=== PATIENT | male | born 1985 | race Caucasian/White ===

== ENCOUNTER 2017-08-03 17:01 | Emergency (ER) | payer MEDICAID ==
[~2017-08-03] VITALS: Ht 5703.2 cm; Wt 150.0 kg
[~2017-08-03 17:01] MED LIST: DIVA500T2 PO; HAL5T PO; HALO10TA13 PO; VALP250C44 PO
[2017-08-03] MEDS ORDERED: ziprasidone IM 20mg inj **IM only IM STA (17:45)
[2017-08-03 19:03] LABS: BASOPHILS # (AUTO) 0.1 X10'3 (0-0.2); BASOPHILS % (AUTO) 0.6 % (0-1); EOSINOPHILS # (AUTO) 0.1 X10'3 (0-0.9); EOSINOPHILS % (AUTO) 1.2 % (0-6); HEMATOCRIT 39.6 % (42.0-52.0); HEMOGLOBIN 13.6 g/dl (14.0-17.9); LYMPHOCYTES # (AUTO) 2.2 X10'3 (1.1-4.8); LYMPHOCYTES % (AUTO) 18.4 % (21-51); MEAN CORPUSCULAR HEMOGLOBIN 29.5 PG (27.0-31.0); MEAN CORPUSCULAR HGB CONC 34.4 % (33.0-36.5); MEAN CORPUSCULAR VOLUME 85.8 FL (78-98); MEAN PLATELET VOLUME 12.1 FL (7.4-10.4); MONOCYTES # (AUTO) 1.2 X10'3 (0-0.9); MONOCYTES % (AUTO) 10.2 % (2-12); NEUTROPHILS # (AUTO) 8.5 X10'3 (1.8-7.7); NEUTROPHILS % (AUTO) 69.6 % (42-75); PLATELET COUNT 223 X10'3 (140-440); RED BLOOD COUNT 4.61 X10'6 (4.70-6.10); RED CELL DISTRIBUTION WIDTH 14.3 % (11.5-14.5); WHITE BLOOD COUNT 12.1 X10'3 (4.5-11.0)
[2017-08-03 19:35] LABS: ALANINE AMINOTRANSFERASE 94 U/L (12-78); ALBUMIN 3.6 G/DL (3.4-5.0); ALBUMIN/GLOBULIN RATIO 0.9 (1.1-1.5); ALKALINE PHOSPHATASE 89 IU/L (46-116); ANION GAP 12 (8-16); ASPARTATE AMINO TRANSFERASE 48 U/L (10-37); BILIRUBIN,TOTAL 0.6 MG/DL (0.1-1.0); BLOOD UREA NITROGEN 13 MG/DL (7-18); BUN/CREATININE RATIO 19.4 (5.4-32.0); CHLORIDE 104 MMOL/L (99-107); CREATININE 0.67 MG/DL (0.60-1.10); ETHANOL < 0.010 GM/DL (0.0-0.010); GLUCOSE 98 MG/DL (70-104); POTASSIUM 3.1 MMOL/L (3.5-5.1); SODIUM 140 MMOL/L (135-145); TOTAL CARBON DIOXIDE 23.7 MMOL/L (24-32); TOTAL PROTEIN 7.5 G/DL (6.4-8.2); eGFR > 90 ML/MIN
[2017-08-03 19:37] LABS: ACETAMINOPHEN < 2.0 UG/ML (10-30); VALPROATE < 3.0 UG/ML (50-100)
[2017-08-03] MEDS ORDERED: HYDR-569 PO (19:52)
[2017-08-03] MEDS ORDERED: potassium Cl 20 mEq SR tablet PO ONE (19:55)
[2017-08-03 20:30] LABS: LARGE PLATELETS MODERATE; PLATELET ESTIMATE NORMAL
[2017-08-03 21:16] LABS: CLARITY,URINE CLEAR (Clear); COLOR,URINE YELLOW (Yellow); GLUCOSE, URINE NEGATIVE (Neg); KETONES,URINE NEGATIVE (Neg); LEUKOCYTE ESTERASE ,URINE NEGATIVE (Neg); NITRITES, URINE NEGATIVE (Neg); OCCULT BLOOD,URINE NEGATIVE (Neg); PROTEIN,URINE NEGATIVE (Neg)
[2017-08-03 21:21] LABS: UA COLLECTION TYPE CLN CATCH MIDSTREAM
[2017-08-03] MEDS ORDERED: NO HOME MEDS (21:26)
[2017-08-03 21:27] LABS: URINE AMPHETAMINE SCREEN NEGATIVE (Neg); URINE BARBITUATE SCREEN NEGATIVE (Neg); URINE BENZODIAZEPINES SCREEN NEGATIVE (Neg); URINE CANNABINOID SCREEN POSITIVE (Neg); URINE COCAINE SCREEN NEGATIVE (Neg); URINE METHADONE SCREEN NEGATIVE (Neg); URINE OPIATE SCREEN NEGATIVE (Neg); URINE PHENCYCLIDINE SCREEN NEGATIVE (Neg)
[2017-08-04] MEDS ORDERED: BENZ1TAB7 PO (12:51)
[2017-08-04] MEDS ORDERED: HALO5TAB PO (12:51)
[2017-08-04] MEDS ORDERED: LORA1TAB PO (12:51)
[2017-08-04] MEDS ORDERED: haloperidol lactate 5mg/ml inj IM ONE (13:25)
[2017-08-04] MEDS: benztropine 1mg tablet PO SCH (20:28)
[2017-08-04] MEDS: haloperidol 5mg tablet PO SCH (20:28)
[2017-08-04] MEDS: LORazepam 1 MG tablet PO SCH (20:28)
[2017-08-05 05:51] VITALS: BP 134/56
[2017-08-05] MEDS: haloperidol 5mg tablet PO SCH (12:35)
[2017-08-05] MEDS: LORazepam 1 MG tablet PO SCH ×2 (12:35→13:00)
[2017-08-05] MEDS: benztropine 1mg tablet PO SCH (12:35)
== END 2017-08-05 14:42 ==
LOC: ER 17:01
DX: F20.9 Schizophrenia, unspecified (principal); F29 Unspecified psychosis not due to a substance or known physiological condition; F79 Unspecified intellectual disabilities; E87.6 Hypokalemia; J45.909 Unspecified asthma, uncomplicated; F17.200 Nicotine dependence, unspecified, uncomplicated; Z59.0 Homelessness; Z60.2 Problems related to living alone; Z88.0 Allergy status to penicillin; Z79.899 Other long term (current) drug therapy
CPT/HCPCS: 36415; 80053; 80164; 80178; 80305; 80320; 80329; 81003; 84443; 85025; 96372; 99285; J1630; J3486

== ENCOUNTER 2017-08-20 15:00 | Emergency (ER) | payer MEDICAID ==
[~2017-08-20] VITALS: Ht 172.7 cm; Wt 119.3 kg
[~2017-08-20 15:00] MED LIST changes: +BENZ1TAB7 PO; -DIVA500T2 PO; -HAL5T PO; -HALO10TA13 PO; +HALO5TAB PO; +LORA1TAB PO; -VALP250C44 PO
[2017-08-20 16:40] LABS: BASOPHILS # (AUTO) 0.1 X10'3 (0-0.2); BASOPHILS % (AUTO) 0.4 % (0-1); EOSINOPHILS % (AUTO) 6.2 % (0-6); HEMATOCRIT 39.4 % (42.0-52.0); HEMOGLOBIN 13.9 g/dl (14.0-17.9); LYMPHOCYTES # (AUTO) 2.6 X10'3 (1.1-4.8); LYMPHOCYTES % (AUTO) 16.9 % (21-51); MEAN CORPUSCULAR HEMOGLOBIN 29.8 PG (27.0-31.0); MEAN CORPUSCULAR HGB CONC 35.2 % (33.0-36.5); MEAN CORPUSCULAR VOLUME 84.5 FL (78-98); MEAN PLATELET VOLUME 9.9 FL (7.4-10.4); MONOCYTES # (AUTO) 1.4 X10'3 (0-0.9); MONOCYTES % (AUTO) 9.3 % (2-12); NEUTROPHILS # (AUTO) 10.4 X10'3 (1.8-7.7); NEUTROPHILS % (AUTO) 67.2 % (42-75); PLATELET COUNT 268 X10'3 (140-440); RED BLOOD COUNT 4.66 X10'6 (4.70-6.10); RED CELL DISTRIBUTION WIDTH 14.1 % (11.5-14.5); WHITE BLOOD COUNT 15.4 X10'3 (4.5-11.0)
[2017-08-20 16:42] LABS: CLARITY,URINE CLEAR (Clear); COLOR,URINE STRAW (Yellow); GLUCOSE, URINE NEGATIVE (Neg); KETONES,URINE NEGATIVE (Neg); LEUKOCYTE ESTERASE ,URINE TRACE (Neg); NITRITES, URINE NEGATIVE (Neg); OCCULT BLOOD,URINE NEGATIVE (Neg); PROTEIN,URINE NEGATIVE (Neg); UROBILINOGEN,URINE 0.2 E.U/dL (0.2-1.0)
[2017-08-20 16:44] LABS: UA COLLECTION TYPE VOIDED
[2017-08-20 16:48] LABS: BACTERIA,URINE NONE SEEN /HPF (Neg); RBC,URINE NONE SEEN /HPF (0-2); SQUAMOUS EPITHELIAL CELL,UR FEW /LPF (FEW); WBC,URINE 0-4 /HPF (0-4)
[2017-08-20 16:56] LABS: URINE AMPHETAMINE SCREEN NEGATIVE (Neg); URINE BARBITUATE SCREEN NEGATIVE (Neg); URINE BENZODIAZEPINES SCREEN NEGATIVE (Neg); URINE CANNABINOID SCREEN POSITIVE (Neg); URINE COCAINE SCREEN NEGATIVE (Neg); URINE METHADONE SCREEN NEGATIVE (Neg); URINE OPIATE SCREEN NEGATIVE (Neg); URINE PHENCYCLIDINE SCREEN NEGATIVE (Neg)
[2017-08-20 17:04] LABS: ALANINE AMINOTRANSFERASE 41 U/L (12-78); ALBUMIN 3.4 G/DL (3.4-5.0); ALBUMIN/GLOBULIN RATIO 0.9 (1.1-1.5); ALKALINE PHOSPHATASE 74 IU/L (46-116); ANION GAP 8 (8-16); ASPARTATE AMINO TRANSFERASE 23 U/L (10-37); BILIRUBIN,TOTAL 0.3 MG/DL (0.1-1.0); BLOOD UREA NITROGEN 8 MG/DL (7-18); BUN/CREATININE RATIO 10.3 (5.4-32.0); CALCIUM 8.7 MG/DL (8.5-10.1); CHLORIDE 104 MMOL/L (99-107); CREATININE 0.78 MG/DL (0.60-1.10); ETHANOL < 0.010 GM/DL (0.0-0.010); GLUCOSE 92 MG/DL (70-104); POTASSIUM 3.7 MMOL/L (3.5-5.1); SODIUM 141 MMOL/L (135-145); TOTAL CARBON DIOXIDE 28.9 MMOL/L (24-32); TOTAL PROTEIN 7.1 G/DL (6.4-8.2); eGFR > 90 ML/MIN
[2017-08-20] MEDS ORDERED: ziprasidone IM 20mg inj **IM only IM ONE (18:00)
[2017-08-20] MEDS ORDERED: haloperidol 5mg tablet PO SCH (20:00)
[2017-08-20] MEDS ORDERED: LORazepam 1 MG tablet PO SCH (21:00)
[2017-08-20] MEDS: benztropine 1mg tablet PO SCH (21:27)
[2017-08-21 05:34] VITALS: BP 115/66
[2017-08-21] MEDS ORDERED: haloperidol 5mg tablet PO SCH (08:00)
[2017-08-21] MEDS: benztropine 1mg tablet PO SCH (08:33)
== END 2017-08-21 09:26 ==
LOC: ER 15:01
DX: F79 Unspecified intellectual disabilities (principal); F31.9 Bipolar disorder, unspecified; F20.9 Schizophrenia, unspecified; J45.909 Unspecified asthma, uncomplicated; Z88.0 Allergy status to penicillin; Z59.0 Homelessness
CPT/HCPCS: 36415; 71046; 80053; 80305; 80320; 81001; 84443; 85025; 96372; 99285; J3486

== ENCOUNTER 2017-10-29 10:31 | Emergency (ER) | payer MEDICAID ==
[~2017-10-29] VITALS: Ht 180.3 cm; Wt 127.3 kg
[2017-10-29 10:39] VITALS: BP 158/83
[2017-10-29] MEDS ORDERED: acetaminophen 325mg tablet PO ONE (11:10)
[2017-10-29] MEDS ORDERED: dexamethasone sod phosphate 10mg/ml inj IM STA (11:10)
[2017-10-29] MEDS ORDERED: CEPH-571 PO (11:11)
[2017-10-29] MEDS ORDERED: LIDO20SO16 PO (11:11)
[2017-10-29] MEDS ORDERED: IBUP-1986 PO (11:11)
== END 2017-10-29 11:49 | disposition home or self-care (01) ==
LOC: ER 10:31
DX: J02.0 Streptococcal pharyngitis (principal); J45.909 Unspecified asthma, uncomplicated; F31.9 Bipolar disorder, unspecified; Z60.2 Problems related to living alone; Z59.0 Homelessness; Z88.0 Allergy status to penicillin; Z79.2 Long term (current) use of antibiotics; Z79.899 Other long term (current) drug therapy
CPT/HCPCS: 87880; 96372; 99283; J1100

== ENCOUNTER 2018-01-16 13:45 | Emergency (ER) | payer MEDICAID ==
[~2018-01-16] VITALS: Ht 172.7 cm; Wt 127.3 kg
[~2018-01-16 13:45] MED LIST changes: +CEPH-571 PO; +IBUP-1986 PO; +LIDO20SO16 PO
[2018-01-16 14:21] LABS: URINE AMPHETAMINE SCREEN POSITIVE (Neg); URINE BARBITUATE SCREEN NEGATIVE (Neg); URINE BENZODIAZEPINES SCREEN NEGATIVE (Neg); URINE CANNABINOID SCREEN POSITIVE (Neg); URINE COCAINE SCREEN NEGATIVE (Neg); URINE METHADONE SCREEN NEGATIVE (Neg); URINE OPIATE SCREEN NEGATIVE (Neg); URINE PHENCYCLIDINE SCREEN NEGATIVE (Neg)
[2018-01-16 14:24] LABS: BASOPHILS % (AUTO) 0.4 % (0-1); EOSINOPHILS # (AUTO) 0.3 X10'3 (0-0.9); EOSINOPHILS % (AUTO) 2.5 % (0-6); HEMATOCRIT 41.6 % (42.0-52.0); HEMOGLOBIN 14.1 g/dl (14.0-17.9); LYMPHOCYTES # (AUTO) 1.9 X10'3 (1.1-4.8); LYMPHOCYTES % (AUTO) 17.4 % (21-51); MEAN CORPUSCULAR HEMOGLOBIN 28.6 PG (27.0-31.0); MEAN CORPUSCULAR HGB CONC 33.8 % (33.0-36.5); MEAN CORPUSCULAR VOLUME 84.7 FL (78-98); MONOCYTES # (AUTO) 1.2 X10'3 (0-0.9); MONOCYTES % (AUTO) 10.6 % (2-12); NEUTROPHILS # (AUTO) 7.7 X10'3 (1.8-7.7); NEUTROPHILS % (AUTO) 69.1 % (42-75); PLATELET COUNT 261 X10'3 (140-440); RED BLOOD COUNT 4.91 X10'6 (4.70-6.10); RED CELL DISTRIBUTION WIDTH 14.4 % (11.5-14.5); WHITE BLOOD COUNT 11.2 X10'3 (4.5-11.0)
[2018-01-16 14:42] LABS: ALANINE AMINOTRANSFERASE 42 U/L (12-78); ALBUMIN 3.6 G/DL (3.4-5.0); ALBUMIN/GLOBULIN RATIO 0.9 (1.1-1.5); ALKALINE PHOSPHATASE 91 IU/L (46-116); ANION GAP 9 (8-16); ASPARTATE AMINO TRANSFERASE 29 U/L (10-37); BLOOD UREA NITROGEN 10 MG/DL (7-18); CALCIUM 8.7 MG/DL (8.5-10.1); CHLORIDE 103 MMOL/L (99-107); GLUCOSE 97 MG/DL (70-104); POTASSIUM 3.8 MMOL/L (3.5-5.1); SODIUM 138 MMOL/L (135-145); TOTAL CARBON DIOXIDE 25.6 MMOL/L (24-32); TOTAL PROTEIN 7.5 G/DL (6.4-8.2); eGFR 88 ML/MIN
[2018-01-16 14:55] LABS: ETHANOL < 0.010 GM/DL (0.0-0.010)
[2018-01-16] MEDS ORDERED: risperiDONE 2mg tablet PO ONE (16:10)
[2018-01-16] MEDS ORDERED: haloperidol lactate 5mg/ml inj IM ONE (16:10)
[2018-01-16] MEDS ORDERED: diphenhydrAMINE 25mg capsule PO ONE (16:10)
[2018-01-16] MEDS ORDERED: acetaminophen 325mg tablet PO PRN (16:40)
[2018-01-16] MEDS: risperiDONE 2mg tablet PO SCH (21:00)
[2018-01-17] MEDS: risperiDONE 2mg tablet PO SCH (21:33)
[2018-01-18 05:30] VITALS: BP 148/92
== END 2018-01-18 10:05 | disposition home or self-care (01) ==
LOC: ER 13:46
DX: F20.9 Schizophrenia, unspecified (principal); F15.10 Other stimulant abuse, uncomplicated; F31.9 Bipolar disorder, unspecified; J45.909 Unspecified asthma, uncomplicated; Z88.0 Allergy status to penicillin; Z79.899 Other long term (current) drug therapy; Z59.0 Homelessness; Z60.2 Problems related to living alone
CPT/HCPCS: 36415; 80053; 80305; 80320; 84443; 85025; 96372; 99285; J1630; Q0163

== ENCOUNTER 2018-03-20 17:46 | Inpatient (IN) | payer MEDICAID ==
[~2018-03-20] VITALS: Ht 180.3 cm; Wt 123.0 kg
[~2018-03-20 17:46] MED LIST changes: -BENZ1TAB7 PO; -CEPH-571 PO; -HALO5TAB PO; -LIDO20SO16 PO; -LORA1TAB PO
[2018-03-20 19:00] VITALS: BP 111/72
[2018-03-20] MEDS: diphenhydrAMINE 25mg capsule PO SCH (21:45)
[2018-03-20] MEDS: LORazepam 1 MG tablet PO SCH (21:45)
[2018-03-20] MEDS: haloperidol 5mg tablet PO SCH (21:45)
[2018-03-21] MEDS ORDERED: acetaminophen 325mg tablet PO PRN (06:05)
[2018-03-21] MEDS ORDERED: mag hydrox/Alum hydrox/simeth 30ml oral suspension PO PRN (06:10)
[2018-03-21] MEDS ORDERED: magnesium hydroxide 30ml (MOM) UD suspension PO PRN (06:10)
[2018-03-21] MEDS ORDERED: NICOTINE POLACRILEX 4 MG LOZENGE BC PRN (06:45)
[2018-03-21] MEDS ORDERED: nicotine 14mg patch - 24hr TD PRN (06:45)
[2018-03-21] MEDS ORDERED: NICOTINE POLACRILEX 2 MG LOZENGE MM PRN (06:50)
[2018-03-21 08:00] VITALS: BP 93/71
[2018-03-21] MEDS: LORazepam 1 MG tablet PO SCH (08:11)
[2018-03-21] MEDS: diphenhydrAMINE 25mg capsule PO SCH ×2 (08:11→20:44)
[2018-03-21] MEDS: haloperidol 5mg tablet PO SCH ×2 (08:11→20:46)
[2018-03-21] MEDS ORDERED: PALIPERIDONE 3 MG TAB.ER.24 PO ONE (08:45)
[2018-03-21] MEDS ORDERED: benztropine 1mg tablet PO PRN (08:45)
[2018-03-21] MEDS ORDERED: divalproex sodium 500mg tablet.DR PO ONE (09:15)
[2018-03-21] MEDS ORDERED: haloperidol 5mg tablet PO ONE (16:10)
[2018-03-21] MEDS ORDERED: LORazepam 1 MG tablet PO ONE (16:10)
[2018-03-21 20:01] VITALS: BP 118/89
[2018-03-21] MEDS: divalproex sod 250mg ER (24-hour) tablet PO SCH (20:45)
[2018-03-22] MEDS: diphenhydrAMINE 25mg capsule PO SCH ×2 (07:33→21:21)
[2018-03-22] MEDS: haloperidol 5mg tablet PO SCH ×3 (07:33→21:21)
[2018-03-22] MEDS: LORazepam 1 MG tablet PO SCH ×3 (07:33→21:21)
[2018-03-22] MEDS: divalproex sod 250mg ER (24-hour) tablet PO SCH ×2 (07:33→21:20)
[2018-03-22 08:00] VITALS: BP 103/52
[2018-03-22] MEDS ORDERED: PALIPERIDONE 3 MG TAB.ER.24 PO SCH (08:00)
[2018-03-22] MEDS ORDERED: haloperidol 5mg tablet PO ONE (09:10)
[2018-03-22] MEDS ORDERED: LORazepam 0.5 MG tablet PO PRN (09:10)
[2018-03-22 09:58] LABS: CHOL/HDL RATIO 4.9 (0.00-4.99); CHOLESTEROL 123 MG/DL (0-200); HDL CHOLESTEROL 25 MG/DL (35-60); LDL CHOLESTEROL 81 MG/DL (50-100); TRIGLYCERIDES 119 MG/DL (20-135)
[2018-03-22 10:06] LABS: HEMOGLOBIN A1C 5.3 % (4.5-6.2)
[2018-03-22] MEDS: haloperidol 5mg tablet PO PRN (10:16)
[2018-03-22 20:00] VITALS: BP 97/55
[2018-03-22 21:21] VITALS: BP 97/55
[2018-03-23] MEDS: haloperidol 5mg tablet PO SCH ×3 (07:48→21:32)
[2018-03-23] MEDS: divalproex sod 250mg ER (24-hour) tablet PO SCH ×2 (07:48→21:32)
[2018-03-23] MEDS: diphenhydrAMINE 25mg capsule PO SCH ×2 (07:48→21:31)
[2018-03-23] MEDS: LORazepam 1 MG tablet PO SCH ×3 (07:48→21:32)
[2018-03-23] MEDS: PALIPERIDONE 3 MG TAB.ER.24 PO SCH (07:49)
[2018-03-23 08:00] VITALS: BP 121/59
[2018-03-23 19:00] VITALS: BP 117/58
[2018-03-24 07:43] VITALS: BP 119/60
[2018-03-24] MEDS: diphenhydrAMINE 25mg capsule PO SCH ×2 (08:00→21:03)
[2018-03-24] MEDS: divalproex sod 250mg ER (24-hour) tablet PO SCH ×2 (09:12→21:03)
[2018-03-24] MEDS: haloperidol 5mg tablet PO SCH ×3 (09:12→21:03)
[2018-03-24] MEDS: LORazepam 1 MG tablet PO SCH ×3 (09:13→21:03)
[2018-03-24] MEDS: PALIPERIDONE 3 MG TAB.ER.24 PO SCH (09:13)
[2018-03-24 20:51] VITALS: BP 101/50
[2018-03-25 07:42] VITALS: BP 124/78
[2018-03-25] MEDS: diphenhydrAMINE 25mg capsule PO SCH ×2 (08:11→20:23)
[2018-03-25] MEDS: LORazepam 1 MG tablet PO SCH ×3 (08:11→20:23)
[2018-03-25] MEDS: divalproex sod 250mg ER (24-hour) tablet PO SCH ×2 (08:11→20:23)
[2018-03-25] MEDS: haloperidol 5mg tablet PO SCH ×3 (08:11→20:23)
[2018-03-25] MEDS: PALIPERIDONE 3 MG TAB.ER.24 PO SCH (08:11)
[2018-03-25 19:07] LABS: ALANINE AMINOTRANSFERASE 25 U/L (12-78); ALBUMIN 2.9 G/DL (3.4-5.0); ALBUMIN/GLOBULIN RATIO 0.8 (1.1-1.5); ALKALINE PHOSPHATASE 67 IU/L (46-116); ANION GAP 6 (8-16); ASPARTATE AMINO TRANSFERASE 10 U/L (10-37); BILIRUBIN,TOTAL 0.2 MG/DL (0.1-1.0); BLOOD UREA NITROGEN 11 MG/DL (7-18); BUN/CREATININE RATIO 12.8 (5.4-32.0); CALCIUM 8.4 MG/DL (8.5-10.1); CHLORIDE 103 MMOL/L (99-107); CREATININE 0.86 MG/DL (0.60-1.10); GLUCOSE 99 MG/DL (70-104); SODIUM 139 MMOL/L (135-145); TOTAL CARBON DIOXIDE 29.7 MMOL/L (24-32); TOTAL PROTEIN 6.4 G/DL (6.4-8.2); VALPROATE 63 UG/ML (50-100); eGFR > 90 ML/MIN
[2018-03-26 08:00] VITALS: BP 110/66
[2018-03-26] MEDS: diphenhydrAMINE 25mg capsule PO SCH ×2 (08:14→20:01)
[2018-03-26] MEDS: PALIPERIDONE 3 MG TAB.ER.24 PO SCH (08:14)
[2018-03-26] MEDS: LORazepam 1 MG tablet PO SCH ×3 (08:15→20:11)
[2018-03-26] MEDS: divalproex sod 250mg ER (24-hour) tablet PO SCH ×2 (08:15→20:02)
[2018-03-26] MEDS: haloperidol 5mg tablet PO SCH ×3 (08:15→20:01)
[2018-03-26 19:00] VITALS: BP 124/76
[2018-03-27 08:00] VITALS: BP 125/78
[2018-03-27] MEDS: divalproex sod 250mg ER (24-hour) tablet PO SCH ×2 (08:09→20:14)
[2018-03-27] MEDS: diphenhydrAMINE 25mg capsule PO SCH ×2 (08:09→20:15)
[2018-03-27] MEDS: LORazepam 1 MG tablet PO SCH ×3 (08:09→20:14)
[2018-03-27] MEDS: PALIPERIDONE 3 MG TAB.ER.24 PO SCH (08:10)
[2018-03-27] MEDS: haloperidol 5mg tablet PO SCH ×3 (08:10→20:15)
[2018-03-27 20:00] VITALS: BP 126/72
[2018-03-28 08:00] VITALS: BP 118/69
[2018-03-28] MEDS: diphenhydrAMINE 25mg capsule PO SCH ×2 (08:05→20:58)
[2018-03-28] MEDS: haloperidol 5mg tablet PO SCH (08:05)
[2018-03-28] MEDS: PALIPERIDONE 3 MG TAB.ER.24 PO SCH (08:06)
[2018-03-28] MEDS: divalproex sod 250mg ER (24-hour) tablet PO SCH ×2 (08:06→20:58)
[2018-03-28] MEDS: LORazepam 1 MG tablet PO SCH ×3 (08:06→21:01)
[2018-03-28 20:00] VITALS: BP 119/69
[2018-03-28] MEDS: acetaminophen 325mg tablet PO PRN (21:01)
[2018-03-29] MEDS: diphenhydrAMINE 25mg capsule PO SCH ×2 (07:49→20:23)
[2018-03-29] MEDS: LORazepam 1 MG tablet PO SCH ×2 (07:49→12:31)
[2018-03-29] MEDS: PALIPERIDONE 3 MG TAB.ER.24 PO SCH (07:50)
[2018-03-29] MEDS: divalproex sod 250mg ER (24-hour) tablet PO SCH ×2 (07:50→20:23)
[2018-03-29 08:00] VITALS: BP 136/62
[2018-03-29] MEDS ORDERED: paliperidone palmitate inj 234 MG/1.5 ML SYRINGE IM ONE (12:45)
[2018-03-29 20:00] VITALS: BP 109/49
[2018-03-30] MEDS: divalproex sod 250mg ER (24-hour) tablet PO SCH ×2 (07:38→20:53)
[2018-03-30] MEDS: diphenhydrAMINE 25mg capsule PO SCH ×2 (07:38→20:53)
[2018-03-30 08:00] VITALS: BP 105/57
[2018-03-30] MEDS: PALIPERIDONE 3 MG TAB.ER.24 PO SCH (13:14)
[2018-03-30 20:16] VITALS: BP 109/62
[2018-03-30] MEDS: LORazepam 0.5 MG tablet PO PRN (20:54)
[2018-03-31 08:00] VITALS: BP 108/68
[2018-03-31] MEDS: diphenhydrAMINE 25mg capsule PO SCH ×2 (08:03→19:59)
[2018-03-31] MEDS: LORazepam 0.5 MG tablet PO PRN ×2 (08:03→12:21)
[2018-03-31] MEDS: PALIPERIDONE 3 MG TAB.ER.24 PO SCH (08:03)
[2018-03-31] MEDS: divalproex sod 250mg ER (24-hour) tablet PO SCH ×2 (08:03→19:59)
[2018-03-31] MEDS: acetaminophen 325mg tablet PO PRN (08:04)
[2018-03-31] MEDS: haloperidol 5mg tablet PO PRN (12:21)
[2018-03-31 20:20] VITALS: BP 97/56
[2018-04-01] MEDS: divalproex sod 250mg ER (24-hour) tablet PO SCH ×2 (07:52→21:06)
[2018-04-01] MEDS: acetaminophen 325mg tablet PO PRN (07:52)
[2018-04-01] MEDS: diphenhydrAMINE 25mg capsule PO SCH ×2 (07:52→21:08)
[2018-04-01] MEDS: PALIPERIDONE 3 MG TAB.ER.24 PO SCH (07:52)
[2018-04-01] MEDS: LORazepam 0.5 MG tablet PO PRN ×3 (07:52→22:49)
[2018-04-01 07:56] VITALS: BP 100/60
[2018-04-01 20:00] VITALS: BP 124/76
[2018-04-02] MEDS ORDERED: LORazepam 1 MG tablet PO ONE ×2 (02:20→23:45)
[2018-04-02 08:00] VITALS: BP 114/54
[2018-04-02] MEDS: diphenhydrAMINE 25mg capsule PO SCH ×2 (08:36→21:07)
[2018-04-02] MEDS: PALIPERIDONE 3 MG TAB.ER.24 PO SCH (08:36)
[2018-04-02] MEDS: divalproex sod 250mg ER (24-hour) tablet PO SCH ×2 (08:36→21:04)
[2018-04-02 19:00] VITALS: BP 124/74
[2018-04-02] MEDS: traZODone 50mg tablet PO SCH (21:04)
[2018-04-02] MEDS: LORazepam 0.5 MG tablet PO PRN (21:05)
[2018-04-02] MEDS ORDERED: PALIPERIDONE 3 MG TAB.ER.24 PO ONE (23:45)
[2018-04-03] MEDS ORDERED: PALIPERIDONE 3 MG TAB.ER.24 PO ONE (07:50)
[2018-04-03 08:00] VITALS: BP 98/52
[2018-04-03] MEDS: PALIPERIDONE 3 MG TAB.ER.24 PO SCH (08:24)
[2018-04-03] MEDS: divalproex sod 250mg ER (24-hour) tablet PO SCH ×2 (08:24→20:45)
[2018-04-03] MEDS: diphenhydrAMINE 25mg capsule PO SCH ×2 (08:24→20:46)
[2018-04-03 19:00] VITALS: BP 119/62
[2018-04-03] MEDS: traZODone 50mg tablet PO SCH (20:46)
[2018-04-03] MEDS ORDERED: paliperidone palmitate 156 mg/ml inj.**IM only IM ONE (21:00)
[2018-04-03] MEDS: LORazepam 0.5 MG tablet PO PRN (23:06)
[2018-04-04] MEDS ORDERED: LORazepam 1 MG tablet PO ONE ×2 (00:25→02:45)
[2018-04-04] MEDS ORDERED: traZODone 50mg tablet PO ONE (00:25)
[2018-04-04] MEDS ORDERED: PALIPERIDONE 3 MG TAB.ER.24 PO SCH (02:45)
[2018-04-04] MEDS ORDERED: OLANZapine 5mg rapidly disint. tablet PO ONE (04:10)
[2018-04-04] MEDS ORDERED: LORazepam 1 MG tablet PO PRN (07:40)
[2018-04-04] MEDS ORDERED: OLANZapine 5mg rapidly disint. tablet PO PRN (07:40)
[2018-04-04 08:00] VITALS: BP 127/68
[2018-04-04] MEDS: divalproex sod 250mg ER (24-hour) tablet PO SCH ×2 (09:27→20:54)
[2018-04-04] MEDS: PALIPERIDONE 3 MG TAB.ER.24 PO SCH (09:27)
[2018-04-04] MEDS: diphenhydrAMINE 25mg capsule PO SCH ×2 (09:27→20:55)
[2018-04-04 19:53] VITALS: BP 125/75
[2018-04-05 08:00] VITALS: BP 92/58
[2018-04-05] MEDS: divalproex sod 250mg ER (24-hour) tablet PO SCH (08:07)
[2018-04-05] MEDS: diphenhydrAMINE 25mg capsule PO SCH (08:07)
[2018-04-05] MEDS: PALIPERIDONE 3 MG TAB.ER.24 PO SCH (08:07)
[2018-04-05] MEDS ORDERED: PALI3TAB5 PO (12:00)
[2018-04-05] MEDS ORDERED: DIVA-81 PO (12:00)
[2018-04-05] MEDS ORDERED: NICO-631 TD (12:00)
[2018-04-05] MEDS ORDERED: DIVA500T9 PO (12:00)
[2018-04-06] MEDS ORDERED: PALIPERIDONE 3 MG TAB.ER.24 PO SCH (08:00)
== END 2018-04-05 14:45 | disposition short-term general hospital (02) | DRG 753 ==
LOC: ADULT MH 19:24
PROVIDERS: ADMIT Psychiatry & Neurology Psychiatry; ATTEND Psychiatry & Neurology Psychiatry
DX: F31.2 Bipolar disorder, current episode manic severe with psychotic features (principal); Z91.14 Patient's other noncompliance with medication regimen; F10.10 Alcohol abuse, uncomplicated; F12.20 Cannabis dependence, uncomplicated; F17.210 Nicotine dependence, cigarettes, uncomplicated; J45.909 Unspecified asthma, uncomplicated; Z59.0 Homelessness; Z88.0 Allergy status to penicillin; Z79.899 Other long term (current) drug therapy; Z83.3 Family history of diabetes mellitus; Z71.51 Drug abuse counseling and surveillance of drug abuser
CPT/HCPCS: 36415; 80053; 80061; 80164; 83036; 87070; Q0163

== ENCOUNTER 2018-06-07 05:14 | Emergency (ER) | payer MEDICAID ==
[~2018-06-07 05:14] MED LIST changes: +DIVA-81 PO; +DIVA500T9 PO; -IBUP-1986 PO; +NICO-631 TD; +PALI3TAB5 PO
--- NOTE | 2018-06-07 05:24 | NUR ---
ATTEMPTED TO TRIAGE PATIENT, HE REFUSED, STATED IM GOING TO USE THE BATHROOM FIRST. EDUCATED PATIENT ABOUT MILINGERING IN THE LOBBY, PT VERBALIZED UNDERSTANDING WILL ATTEMPT TO TRIAGE IN 15 MIN.
== END 2018-06-07 05:54 | disposition left against medical advice (07) ==
LOC: ER 05:14
DX: Z53.21 Procedure and treatment not carried out due to patient leaving prior to being seen by health care provider (principal)

== ENCOUNTER 2018-06-07 07:28 | Emergency (ER) | payer MEDICAID ==
[~2018-06-07] VITALS: Ht 180.3 cm; Wt 121.6 kg
[2018-06-07 07:32] VITALS: BP 136/78
== END 2018-06-07 08:09 | disposition home or self-care (01) ==
LOC: ER 07:28
DX: S60.052A Contusion of left little finger without damage to nail, initial encounter (principal); S90.822A Blister (nonthermal), left foot, initial encounter; S90.821A Blister (nonthermal), right foot, initial encounter; J45.909 Unspecified asthma, uncomplicated; E11.9 Type 2 diabetes mellitus without complications; F15.90 Other stimulant use, unspecified, uncomplicated; Z59.0 Homelessness; Z60.2 Problems related to living alone; Z79.4 Long term (current) use of insulin; Z88.0 Allergy status to penicillin; X58.XXXA Exposure to other specified factors, initial encounter; Y93.01 Activity, walking, marching and hiking; Y92.89 Other specified places as the place of occurrence of the external cause; Y99.8 Other external cause status
CPT/HCPCS: 73140; 99283

== ENCOUNTER 2018-06-08 10:45 | Emergency (ER) | payer MEDICAID ==
--- NOTE | 2018-06-08 11:02 | NUR ---
PT DROPPED OFF BY [employer] WHO STATED THAT THE PT HAD A MEDICATION REQUEST. WHEN PT WAS BROUGHT INTO TRIAGE, HE REFUSED TO GET VITALS AND STARED AT THE TRIAGE NURSE AND WOUDNT ANSWER QUESTIONS. SECURITY CALLED AND PT INDICATED THAT HE DID NOT NEED TO HAVE ANY MEDICAL TREATMENTS TODAY. PT THEN LEAVES THE ER.
== END 2018-06-08 11:12 | disposition left against medical advice (07) ==
LOC: ER 10:46
DX: Z76.0 Encounter for issue of repeat prescription (principal); Z53.21 Procedure and treatment not carried out due to patient leaving prior to being seen by health care provider

== ENCOUNTER 2018-06-08 12:58 | Emergency (ER) | payer MEDICAID ==
[~2018-06-08] VITALS: Ht 180.3 cm; Wt 121.0 kg
[2018-06-08 14:28] LABS: ALANINE AMINOTRANSFERASE 36 U/L (12-78); ALBUMIN 3.7 G/DL (3.4-5.0); ALKALINE PHOSPHATASE 62 IU/L (46-116); ANION GAP 13 (8-16); ASPARTATE AMINO TRANSFERASE 52 U/L (10-37); BILIRUBIN,TOTAL 0.6 MG/DL (0.1-1.0); BLOOD UREA NITROGEN 17 MG/DL (7-18); BUN/CREATININE RATIO 22.4 (5.4-32.0); CALCIUM 8.7 MG/DL (8.5-10.1); CHLORIDE 105 MMOL/L (99-107); CREATININE 0.76 MG/DL (0.60-1.10); ETHANOL < 0.010 GM/DL (0.0-0.010); GLUCOSE 81 MG/DL (70-104); POTASSIUM 3.7 MMOL/L (3.5-5.1); SODIUM 141 MMOL/L (135-145); TOTAL CARBON DIOXIDE 23.5 MMOL/L (24-32); TOTAL PROTEIN 7.3 G/DL (6.4-8.2); eGFR > 90 ML/MIN
[2018-06-08] MEDS ORDERED: LORazepam 1 MG tablet PO ONE (14:45)
[2018-06-08 14:51] LABS: URINE AMPHETAMINE SCREEN NEGATIVE (Neg); URINE BARBITUATE SCREEN NEGATIVE (Neg); URINE BENZODIAZEPINES SCREEN NEGATIVE (Neg); URINE CANNABINOID SCREEN POSITIVE (Neg); URINE COCAINE SCREEN NEGATIVE (Neg); URINE METHADONE SCREEN NEGATIVE (Neg); URINE OPIATE SCREEN NEGATIVE (Neg); URINE PHENCYCLIDINE SCREEN NEGATIVE (Neg)
[2018-06-08 14:53] LABS: CLARITY,URINE CLEAR (Clear); COLOR,URINE YELLOW (Yellow); GLUCOSE, URINE NEGATIVE (Neg); KETONES,URINE >=80 mg/dl (Neg); LEUKOCYTE ESTERASE ,URINE NEGATIVE (Neg); NITRITES, URINE NEGATIVE (Neg); OCCULT BLOOD,URINE NEGATIVE (Neg); PROTEIN,URINE TRACE mg/dl (Neg); UROBILINOGEN,URINE 0.2 E.U/dL (0.2-1.0)
[2018-06-08 15:00] LABS: UA COLLECTION TYPE VOIDED
[2018-06-08 15:03] LABS: WBC,URINE 30-50 /HPF (0-4)
[2018-06-08 15:04] LABS: BACTERIA,URINE 1+ /HPF (Neg); MUCUS STRANDS MODERATE /LPF (Neg); RBC,URINE NONE SEEN /HPF (0-2); SQUAMOUS EPITHELIAL CELL,UR FEW /LPF (FEW)
[2018-06-08 15:07] LABS: BASOPHILS % (AUTO) 0.3 % (0-1); EOSINOPHILS # (AUTO) 0.4 X10'3 (0-0.9); EOSINOPHILS % (AUTO) 2.3 % (0-6); HEMATOCRIT 34.6 % (42.0-52.0); HEMOGLOBIN 11.8 g/dl (14.0-17.9); LYMPHOCYTES # (AUTO) 2.6 X10'3 (1.1-4.8); LYMPHOCYTES % (AUTO) 16.8 % (21-51); MEAN CORPUSCULAR HEMOGLOBIN 29.9 PG (27.0-31.0); MEAN CORPUSCULAR HGB CONC 34.1 g/dL (33.0-36.5); MEAN CORPUSCULAR VOLUME 87.5 FL (78-98); MEAN PLATELET VOLUME 9.4 FL (7.4-10.4); MONOCYTES # (AUTO) 1.7 X10'3 (0-0.9); MONOCYTES % (AUTO) 10.7 % (2-12); NEUTROPHILS # (AUTO) 10.9 X10'3 (1.8-7.7); NEUTROPHILS % (AUTO) 69.9 % (42-75); PLATELET COUNT 262 X10'3 (140-440); RED BLOOD COUNT 3.96 X10'6 (4.70-6.10); RED CELL DISTRIBUTION WIDTH 13.8 % (11.5-14.5); WHITE BLOOD COUNT 15.6 X10'3 (4.5-11.0)
--- NOTE | 2018-06-08 15:15 | NUR ---
Pt brought from in er voluntarly blindfolded due to his persistent masturbation.
--- NOTE | 2018-06-08 15:22 | NUR ---
Asked pt why police brought him in. Pt responded, "sunk my kathy". He stated that we didn't want to know where he sunk his kathy into.
[2018-06-08] MEDS ORDERED: CefTRIAXone 1000mg IM Kit (w/lidocaine diluent) IM ONE (15:25)
[2018-06-08] MEDS ORDERED: ciprofloxacin 250mg tablet PO ONE (15:31)
--- NOTE | 2018-06-08 16:30 | NUR ---
Pt has moist fragrant rash around belly button. Requested order for Nystatin, order denied.
--- NOTE | 2018-06-08 16:56 | NUR ---
Pt stood up, hid behind the podum, and pulled down his pants.
[2018-06-08] MEDS ORDERED: LORazepam 2 mg/ml vial IM ONE (17:05)
[2018-06-08] MEDS ORDERED: haloperidol lactate 5mg/ml inj IM ONE (17:05)
[2018-06-08] MEDS ORDERED: diphenhydrAMINE 50 mg/ml inj IM ONE (17:05)
--- NOTE | 2018-06-09 01:12 | NUR ---
Patient up to restroom and back to bed. Now sleeping comfortably with hands visible above blanket.
--- NOTE | 2018-06-09 03:59 | NUR ---
Patient continues to sleep.
--- NOTE | 2018-06-09 05:36 | NUR ---
Patient is awake and yelling at staff because he is staying on a mental health hold. Patient educated on reason for his stay.
[2018-06-09] MEDS ORDERED: diphenhydrAMINE 50 mg/ml inj IM ONE (05:55)
[2018-06-09] MEDS ORDERED: haloperidol lactate 5mg/ml inj IM ONE (05:55)
[2018-06-09] MEDS ORDERED: LORazepam 2 mg/ml vial IM ONE (05:55)
[2018-06-09] MEDS ORDERED: LORazepam 1 MG tablet PO ONE (05:55)
[2018-06-09] MEDS ORDERED: OLANZapine 2.5MG tablet PO ONE (06:20)
--- NOTE | 2018-06-09 06:28 | NUR ---
Patient's behavior is becoming more erratic. He is having difficulty following instructions and continually misbehaves despite being immediately having behaviors corrected. Patient is up and masturbating, pulling up he shit, exposing his buttock, and poking his head through his neighbors curtains. Recommended medications from [facility] provided.
[2018-06-09] MEDS: olanzapine 10mg tablet PO SCH ×2 (06:38→20:10)
--- NOTE | 2018-06-09 08:00 | NUR ---
RECEIVED SBAR REPORT FROM KIANA HANNA, PT IS UP TO BATHROOM AND NURSES STATION MULTIPLE TIMES, PT INAPPROPRIATE BEHAVIOR AND LANGUAGE, PT VERBALLY REDIRECTED MULTIPLE TIMES TO GO BACK TO BED, NOT LOOK IN OTHER PATIENTS ROOM AND NOT TO MOVE THE BED IN HIS ROOM
--- NOTE | 2018-06-09 08:12 | NUR ---
MEDICATIONS RETRIEVED, DRAWN UP AND ADMINISTERED BY TIARRA HANNA
--- NOTE | 2018-06-09 08:32 | NUR ---
PT CONTINUES TO GET UP, GO TO NURSES STATION, MOVE BED, RN CONTINUES TO VERBALLY REDIRECT PT NUMEROUS TIMES, PT IS CURRENTLY LAYING IN BED
[2018-06-09] MEDS ORDERED: ciprofloxacin 250mg tablet PO ONE ×2 (08:35→20:00)
--- NOTE | 2018-06-09 08:43 | NUR ---
PT MEDICATED WITH CIPRO PER ORDERS, MEAL TRAY PLACED AT BEDSIDE, PT SITTING UP AT BEDSIDE EATING NOW.
--- NOTE | 2018-06-09 08:51 | NUR ---
PT FINISHED 75% OF BREAKFAST MEAL TRAY AND IS NOT SLEEPING, RESPIRATIONS SPONTANEOUS, EVEN AND UNLABORED, NO S/S OF DISTRESS, DISCOMFORT OR AGITATION.
--- NOTE | 2018-06-09 10:23 | NUR ---
PT IS SLEEPING, RESPIRATIONS SPONTANEOUS, EVEN AND UNLABORED, NO S/S OF DISTRESS, DISCOMFORT OR AGITATION.
--- NOTE | 2018-06-09 12:24 | NUR ---
PT UP FROM BED STILL SLEEPY FROM MEDICATIONS, PT INSTRUCTED TO GET BACK IN BED DUE TO BEING UNSTEADY, PT AGREEABLE AND RETURNED TO BED, SLEEPING ON RIGHT SIDE, NO S/S OF DISTRESS, DISCOMFORT OR AGITATION.
--- NOTE | 2018-06-09 12:36 | NUR ---
VERBAL ORDER RECEIVED FROM DR NOEL 2MG ATIVAN IM PRN AGITATION, 5 MG HALDOL IM PRN, AND BENADRYL 50 MG IM PRN AGITATION.
--- NOTE | 2018-06-09 12:47 | NUR ---
PT LAYING ON RIGHT SIDE SLEEPING, TIARRA RN REMOVED PT HAND FROM PANTS/GENITALIA, PT HAS BEEN INAPPROPRIATE WITH LANGUAGE AND GESTURES.
--- NOTE | 2018-06-09 13:07 | NUR ---
LUNCH MEAL TRAY PLACED AT PT BEDSIDE, PT SLEEPING, RESPIRATIONS SPONTENOUS, EVEN AND UNLABORED, NO S/S OF DISTRESS DISCOMFORT OR AGITATION.
--- NOTE | 2018-06-09 13:57 | NUR ---
PT IS SLEEPING, RESPIRATIONS SPONTANEOUS, EVEN AND UNLABORED, NO S/S OF DISTRESS, DISCOMDFORT OR AGITATION.
--- NOTE | 2018-06-09 14:30 | NUR ---
PT IS AWAKE AND EATING AT THIS TIME, PT INSTRUCTED BY STAFF TO TAKE HANDS OUT OF PANTS
--- NOTE | 2018-06-09 15:12 | NUR ---
PT CAME TO NURSES STATION C/O RED ITCHY RASH TO ARMS, DR NOEL CALLED TO BEDSIDE TO EVALUATE, RECEIVED VERBAL ORDER TO GIVE 50 MG PRN IM BENADRYL, STOP THE CIPRO AND START DOXYCYCLINE 100MG BID FOR 5 DAYS, CALLED PHARMACY TO SPEAK WITH PHARMACIST TO CONFIRM CHANGES ARE DONE CORRECTLY.
[2018-06-09] MEDS: diphenhydrAMINE 50 mg/ml inj IM PRN (15:19)
[2018-06-09] MEDS: haloperidol lactate 5mg/ml inj IM PRN (17:20)
[2018-06-09] MEDS: LORazepam 2 mg/ml vial IM PRN (17:20)
--- NOTE | 2018-06-09 17:21 | NUR ---
PT WOKE UP AND WAS POSTURING TO STAFF, THROWING ITEMS DOWN ON BED, SECURITY CALLED TO BEDSIDE GAVE PT IM ATIVAN AND HALDOL PER ORDERS.
--- NOTE | 2018-06-09 19:00 | NUR ---
patient up out of bed wandering needing constant re-direction security on stand by no observable s/s of acute stress at this time
[2018-06-09] MEDS: DOXYCYCLINE 100MG CAPSULE PO SCH (20:10)
--- NOTE | 2018-06-09 21:34 | NUR ---
patient in bed lying supine eyes closed rr even un-labored no observable s/s of acute stress at this time
--- NOTE | 2018-06-09 23:37 | NUR ---
PATIENT LYING ON RIGHT SIDE IN BED COVERS ON EYES CLOSED NO OBSERVABLE S/S OF ACUTE STRESS AT THIS TIME
--- NOTE | 2018-06-10 01:42 | NUR ---
PATIENT LYING ON RIGHT SIDE IN BED COVERS ON EYES CLOSED RR EVEN UN LABORED NO OBSERVABLE S/S OF ACUTE STRESS AT THIS TIME
--- NOTE | 2018-06-10 02:13 | NUR ---
PATIENT UP , TRYING TO ANTAGONIZE STAFF, SITTER POSTED BEDSIDE DUE TO PATIENTS INABILITY TO FOLLOW SIMPLE APPROPRIATE COMMANDS
--- NOTE | 2018-06-10 02:37 | NUR ---
patient still being un cooperative, speaking loudly, patient is observably getting agitated pacing around bed speaking incomprehensible sentences, patient getting harder to re direct
--- NOTE | 2018-06-10 02:59 | NUR ---
brought patient pitcher of water upon request, patient is still getting up and down and having to be re-directed to get back in bed and to lower voice due to a full overflow trying to sleep. upon that request patient had multiple explicit statements towards hospital and staff. patient currently back in bed for now
[2018-06-10] MEDS: diphenhydrAMINE 50 mg/ml inj IM PRN (03:27)
--- NOTE | 2018-06-10 03:27 | NUR ---
due to patients consistently needing to be re-directed and elevated agitation as well as the patient seemed to get a rash from anti-biotic for uti on upper extemity and buttocks per day shift rn, i adminstered im benadryl, this im administration will help with the itching patient is expierencing as well as to decrease agitation
--- NOTE | 2018-06-10 03:40 | NUR ---
patient vback in bed lying on right side covers on talking to himself, agitation appear at this time to be mildly decreasing due to the fact the patient has stayed in bed and has not had to be re directed yet.
--- NOTE | 2018-06-10 03:52 | NUR ---
patient back out of bed other patient politly asking if there could be quiet due to the hour of the night, patient increasing volume of voice
--- NOTE | 2018-06-10 03:58 | NUR ---
patient currently flexing and postering towards me and staff using verbal abuse and trying to make staff flinch by qick postering, will administer ativan,haldol im due to the agitation towards staff and being diruptive towards other patients trying to rest.
[2018-06-10] MEDS: LORazepam 2 mg/ml vial IM PRN (04:08)
[2018-06-10] MEDS: haloperidol lactate 5mg/ml inj IM PRN (04:08)
--- NOTE | 2018-06-10 04:51 | NUR ---
patient lying supine in bed covers on eyes closed rr even un labored no observable s/s of acute stress at this time
--- NOTE | 2018-06-10 06:25 | NUR ---
Patient up to nurses station, back and forth to room. Patient is non-stop talking and mimicking everything nurses and people around him say. Continue to monitor.
[2018-06-10] MEDS: olanzapine 10mg tablet PO SCH ×2 (07:38→21:13)
[2018-06-10] MEDS: DOXYCYCLINE 100MG CAPSULE PO SCH ×2 (07:38→21:13)
--- NOTE | 2018-06-10 07:46 | NUR ---
Patient continues to talk and mimick everybody around him. Patient up to nurses station back and forth to bed. Des, security sitting at bedside. Pt continues to talk non-stop. Continue to monitor.
[2018-06-10] MEDS ORDERED: diphenhydrAMINE 50 mg/ml inj IM ONE (08:25)
[2018-06-10] MEDS ORDERED: haloperidol lactate 5mg/ml inj IM ONE (08:25)
[2018-06-10] MEDS ORDERED: LORazepam 2 mg/ml vial IM ONE (08:25)
--- NOTE | 2018-06-10 09:45 | NUR ---
Patient has been asleep for about 1 hour and now up and standing at bedside. Continue to monitor.
--- NOTE | 2018-06-10 12:13 | NUR ---
Patient is being intrusive and looking into people's rooms. Patient next to Lazaro keeps telling him to mind his own business. Patient unable to control himself. Continue to monitor.
--- NOTE | 2018-06-10 14:10 | NUR ---
Patient slept for 1 hour and was then up being intrusive. Speaking non-stop. Not making sense at times. Continue to monitor.
--- NOTE | 2018-06-10 16:25 | NUR ---
Patient is up and being intrusive. Security called for stand-by. Patient follows commands more rapidly with security in view. Continue to monitor.
--- NOTE | 2018-06-10 19:00 | NUR ---
Pt. asleep at this time, rr even and unlabored
--- NOTE | 2018-06-10 19:30 | NUR ---
Pt. awake and gets out of bed, wandering and intrusive/making demands of staff. Pt. redirected to his bed, and presented with dinner tray. He eats however continues to be intrusive into others conversations, using inappropriate language, and appears to be experiencing H/A (aeb carrying on non-senseical conversation to himself). This engineering technical writer approached pt. and asked that he please lower his voice and use appropriate language (as it was upsetting those around him). He complied and lay back down to sleep, will continue to monitor.
[2018-06-10] MEDS: lactobacillus rhamnosus 10,000 MMU CELLS/CAPSULE PO SCH (20:00)
--- NOTE | 2018-06-10 20:00 | NUR ---
Pt. compliant with all medications.
--- NOTE | 2018-06-10 20:57 | NUR ---
PT WAS ATTEMPTING TO WALK OUT AND MYSELF AND DELIA (SECURITY) ESCORTED HIM BACK TO HIS BED.
--- NOTE | 2018-06-10 22:00 | NUR ---
Pt. up out of bed, wandering towards staff, intrusive. Presents as delusional states, "I'm going scuba diving." Able to be redirected back to bed by staff and educated that it is time to sleep, voices understanding
--- NOTE | 2018-06-10 23:00 | NUR ---
Pt. continues to sleep on his rt. side, rr even and unlabored
[2018-06-11] MEDS ORDERED: DIVA-81 PO (00:22)
[2018-06-11] MEDS ORDERED: PALI3TAB PO (00:22)
[2018-06-11] MEDS ORDERED: DIVA500T4 PO (00:22)
--- NOTE | 2018-06-11 00:22 | NUR ---
Pt. up to use the BR, walks independently without any difficulty, however remains confused and easily distractable. Walking towards exit, however able to be redircted by staff. Pt. continues to make non-sensical statements. Returns to bed
[2018-06-11] MEDS ORDERED: UNABLE TO OBTAIN (00:31)
--- NOTE | 2018-06-11 00:36 | NUR ---
Unable to complete Med Recc per pt continued confustion/disorganization. Per charge nurse, AM shift to contact [facility] for pt's current Outpatient Medications and follow-up with pharmacy. Pt. reports he has been receiving Invega injections. Will endorse to AM shift.
--- NOTE | 2018-06-11 01:00 | NUR ---
Pt. continues to sleep, however wakes up periodically with different requests (snacks, to take a shower) and wanders. However, continues to be redirectible by staff. Sitting on edge of bed eating snack at this time.
--- NOTE | 2018-06-11 03:00 | NUR ---
Pt. sleeping on his left side, rr even and unlabored
--- NOTE | 2018-06-11 05:00 | NUR ---
Pt. awake and requests a snack, he then lays back down
[2018-06-11] MEDS ORDERED: diphenhydrAMINE 25mg capsule PO ONE (05:55)
--- NOTE | 2018-06-11 05:56 | NUR ---
Pt. reports itching and has developed a slight rash on abdomen and bilateral FA. Left eye slightly swollen. V/S are stable and pt. denies SOB. Obtained new order for Benadryl 50mg PO once from Dr. Law. Addendum: 06/11/18 at 0606 by KIKI Pt. had been taking ABT Ciprofloxacin, however it was discovered that he was allergic to this medication. Medication was D/C'd on 06/09/18 and pt. was started on Doxycycline, he has received 3 doses. Will endorse to AM shift and continue to monitor.
[2018-06-11] MEDS: LORazepam 2 mg/ml vial IM PRN (07:40)
[2018-06-11] MEDS: lactobacillus rhamnosus 10,000 MMU CELLS/CAPSULE PO SCH ×2 (07:41→20:24)
[2018-06-11] MEDS: olanzapine 10mg tablet PO SCH ×2 (07:41→20:24)
--- NOTE | 2018-06-11 07:50 | NUR ---
Spoke with Dr. Castañeda and informed pt has started to develope facial swelling since starting medication doxycycline. Received VO to DC medication and place med as allergy on chart and pt is to be started on Bactrim DS PO BID x 7 days.
[2018-06-11] MEDS: sulfamethoxazole/trimethoprim DS (800/160mg) tablet PO SCH ×2 (08:52→20:24)
[2018-06-11] MEDS ORDERED: dexamethasone 4mg tablet PO ONE (10:05)
--- NOTE | 2018-06-11 10:05 | NUR ---
Patient sleeping on left side. No distress observed. Continue to monitor.
[2018-06-11] MEDS: hydrOXYzine 25 MG tablet PO PRN (10:23)
--- NOTE | 2018-06-11 12:15 | NUR ---
Patient awake, alert and up and down to nurses station. Patient wants to leave. Patient's 5150 expires at 1900 tonight. Continue to monitor.
--- NOTE | 2018-06-11 14:19 | NUR ---
Patient in room and awake. No distress observed. Continue to monitor.
--- NOTE | 2018-06-11 16:22 | NUR ---
Patient up to the bathroom, ambulatory, steady gait. No distress observed. Continue to monitor.
--- NOTE | 2018-06-11 21:20 | NUR ---
PT REDIRECTED SEVERAL TIMES TO RETURN TO BED, VERY COOPERATIVE.
[2018-06-12] MEDS: LORazepam 2 mg/ml vial IM PRN (00:26)
[2018-06-12] MEDS: diphenhydrAMINE 50 mg/ml inj IM PRN (00:26)
--- NOTE | 2018-06-12 00:27 | NUR ---
PT BECOMING SOMEWHAT AGGITATED, KEEPS STANDING AT FOOT OF BED AND WHEN ASKED TO LIE OR SIT BACK DOWN STATES, "I WILL" THEN PLOPS ONTO BED MAKING LOUD NOISE. THIS OCCURRED SEVERAL TIMES. PT THEN MEDICATED WITH ATIVAN AND BENADRYL IM, COOPERATIVE AND NOW LYING IN BED.
--- NOTE | 2018-06-12 01:11 | NUR ---
PT NOW RESTING QUIETLY IN BED, APPEARS ASLEEP
--- NOTE | 2018-06-12 02:54 | NUR ---
CONTINUES TO BE RESTLESS, BUT STAYING IN BED.
--- NOTE | 2018-06-12 07:05 | NUR ---
TELEPSYCH REEVALUATION ORDER BY DR NOEL FOR MEDICATION CHANGE AND INITIATED. TELEPSYCH CART AT BEDSIDE. PT PACING BACK AND FORTH INFRONT OF NURSES DESK, REDIRECTABLE AND NON CONFRONTATIONAL.
[2018-06-12] MEDS: olanzapine 10mg tablet PO SCH (08:00)
--- NOTE | 2018-06-12 08:03 | NUR ---
TELEPSYCH COMPLETED. DR HERNANDEZ RECOMMENED CHANGING XYPREXA TO INVEGA 9MG AND DEPAKOTE 500MG BID. RECOMMENDATION REPORT TO FOLLOW. Addendum: 06/12/18 [address] HERNANDEZ RECOMMENDED THAT A DEPAKOTE LEVEL BE DRAWN WITHIN 72 HRS AFTER INITIAL DOSE STARTED.
[2018-06-12] MEDS: sulfamethoxazole/trimethoprim DS (800/160mg) tablet PO SCH ×2 (08:20→20:05)
[2018-06-12] MEDS: lactobacillus rhamnosus 10,000 MMU CELLS/CAPSULE PO SCH ×2 (08:20→20:05)
--- NOTE | 2018-06-12 08:44 | NUR ---
Fabricio liu in ED - 06/12/18 at 0852 by SATISH PT SPEAKING WITH TELEPSYCH DOCTOR AT THIS TIME. PT HAS 2 FAMILY MEMBERS AT BEDSIDE.
--- NOTE | 2018-06-12 09:00 | NUR ---
RECOMMENDED MEDICATIONS FROM DR HERNANDEZ, [facility], RECEIVED AND REVIEWED BY DR NOEL AND ORDERED. PT IS ASLEEP AND WILL START NEW MEDICATIONS WHEN HE WAKES.
[2018-06-12] MEDS: valproic acid 250mg capsule PO SCH ×2 (11:16→20:05)
[2018-06-12] MEDS: PALIPERIDONE 3 MG TAB.ER.24 PO SCH (11:24)
--- NOTE | 2018-06-12 11:27 | NUR ---
PT IS AWAKE, GIVEN NEW ORDERED MEDICATION WITHOUT DIFFICULTY.
--- NOTE | 2018-06-12 18:39 | NUR ---
Report rec'd, assumed care. Patient resting in bed with eyes closed, appearing to sleep.
--- NOTE | 2018-06-12 18:46 | NUR ---
Dinner tray given to patient.
--- NOTE | 2018-06-12 19:32 | NUR ---
Ate dinner, up walking around end of bed.
--- NOTE | 2018-06-12 19:56 | NUR ---
Up to BRP.
[2018-06-12] MEDS: hydrOXYzine 25 MG tablet PO PRN (20:05)
--- NOTE | 2018-06-12 20:06 | NUR ---
Medications given, patient initially stated that he intended to refuse his medications because "I have trust issues with the hospital", and that "no psych doctor prescribed them". Explained to patient that the depakote was prescribed by a psych doctor following his consult with [facility], and explained the purpose of the other medications. Patient eventually took medications.
--- NOTE | 2018-06-12 20:34 | NUR ---
Pt given toothpaste and toothbrush. Pt brushed his own teeth - no assistance required.
--- NOTE | 2018-06-12 21:15 | NUR ---
Resting in bed, eyes closed, resp are even and unlabored, appearing to sleep.
--- NOTE | 2018-06-12 21:55 | NUR ---
Patient wandering around foot of bed, patient has made multiple attempts to undermind staff when they are with other patients. Will ask for things, food, snacks, etc that other patients were told they could not have. Easily agitated and will start slamming hands onto his table and loudly clapping hands. Redirected.
--- NOTE | 2018-06-12 23:24 | NUR ---
Pacing at end of bed, swing his arms at times. Removed his scrub top and was instructed to put it back on. Patient did comply, though noted with s/sx agitation.
--- NOTE | 2018-06-13 00:30 | NUR ---
Restless in bed, though appearing to sleep. Will monitor.
--- NOTE | 2018-06-13 01:30 | NUR ---
Resting in bed, awake and restless at times.
--- NOTE | 2018-06-13 02:51 | NUR ---
Patient asking for a snack, reminded, aas he was told previously, that breakfast in the morning, no snacks tonight. Patient with noted passive aggressive behaviors, making noises, and mocking staff for apparent "rise" from staff. Patient was redirected, and behaviors were not reinforced.
--- NOTE | 2018-06-13 02:59 | NUR ---
Patient has to be reminded and redirected to leave his shirt in place, continues to lift up his shirt and rubs his torse with his hands.
--- NOTE | 2018-06-13 03:14 | NUR ---
Patient continues to get up and stand/pace at the end of the bed, swinging arms, he was redirected to lay back down in bed. Complied, though heavily laid himself down onto the bed.
--- NOTE | 2018-06-13 04:57 | NUR ---
awake, vitals taken, continues to need to be reminded to keep clothing in place
--- NOTE | 2018-06-13 06:32 | NUR ---
Pt in bed sleeping.
[2018-06-13] MEDS: lactobacillus rhamnosus 10,000 MMU CELLS/CAPSULE PO SCH ×2 (07:24→18:59)
[2018-06-13] MEDS: sulfamethoxazole/trimethoprim DS (800/160mg) tablet PO SCH ×2 (07:24→18:59)
[2018-06-13] MEDS: valproic acid 250mg capsule PO SCH ×2 (07:24→18:59)
[2018-06-13] MEDS: PALIPERIDONE 3 MG TAB.ER.24 PO SCH (07:24)
[2018-06-13] MEDS: haloperidol 5mg tablet PO PRN (10:11)
[2018-06-13] MEDS ORDERED: LORazepam 1 MG tablet PO ONE (10:15)
--- NOTE | 2018-06-13 10:39 | NUR ---
Persistently coming up to nurses station, seems to be responding to internal stimuli. Medicated with ativan and haldol.
--- NOTE | 2018-06-13 14:19 | NUR ---
Pt is now in bed sleeping.
--- NOTE | 2018-06-13 17:31 | NUR ---
Pt reorients easily. Has been sleeping most of the shift.
--- NOTE | 2018-06-13 19:31 | NUR ---
PT PARANOID ABOUT TAKING NIGHT TIME MEDS. STATES, "I DONT NEED THEM, I'LL JUST PRAY." ENC TO TAKE ONE IS FOR INFECTION. AFTER MUCH DISCUSSION, PT AGREED TO TAKE MEDS.
[2018-06-14] MEDS: lactobacillus rhamnosus 10,000 MMU CELLS/CAPSULE PO SCH ×2 (08:04→20:14)
[2018-06-14] MEDS: PALIPERIDONE 3 MG TAB.ER.24 PO SCH (08:04)
[2018-06-14] MEDS: sulfamethoxazole/trimethoprim DS (800/160mg) tablet PO SCH ×2 (08:04→20:14)
[2018-06-14] MEDS: valproic acid 250mg capsule PO SCH ×2 (08:04→20:14)
--- NOTE | 2018-06-14 08:30 | NUR ---
Sitting at side of bed eating breakfast.
[2018-06-14] MEDS: haloperidol 5mg tablet PO PRN (08:45)
--- NOTE | 2018-06-14 10:35 | NUR ---
PT IS IN BED RESTING ON RIGHT SIDE, EYES CLOSED, SPONTANEOUS REGULAR BREATHING PRESENT, NO S/S OF DISTRESS OBSERVED
[2018-06-14] MEDS: diphenhydrAMINE 50 mg/ml inj IM PRN (12:25)
[2018-06-14] MEDS: LORazepam 2 mg/ml vial IM PRN (12:25)
[2018-06-14] MEDS: hydrOXYzine 25 MG tablet PO PRN (13:03)
--- NOTE | 2018-06-14 16:43 | NUR ---
PT IS IN BED RESTING ON HIS LEFT SIDE, EYES CLOSED, SPONTANEOUS REGULAR BREATHING PRESENT, NO S/S OF DISTRESS OBSERVED
[2018-06-14 17:35] VITALS: BP 103/50
--- NOTE | 2018-06-14 19:02 | NUR ---
did not recieve report, assumed care of patient, pt is in bed on left side, was just up walking around, no s/s of agitiation
== END 2018-06-14 20:48 | disposition home or self-care (01) ==
LOC: ER 12:59
DX: F29 Unspecified psychosis not due to a substance or known physiological condition (principal); F31.9 Bipolar disorder, unspecified; F20.9 Schizophrenia, unspecified; N39.0 Urinary tract infection, site not specified; F03.91 Unspecified dementia, unspecified severity, with behavioral disturbance; L53.8 Other specified erythematous conditions; J45.909 Unspecified asthma, uncomplicated; F15.90 Other stimulant use, unspecified, uncomplicated; Z59.0 Homelessness; Z88.0 Allergy status to penicillin; Z79.899 Other long term (current) drug therapy
CPT/HCPCS: 36415; 80053; 80305; 80320; 81001; 85025; 96372; 99285; J0696; J1200; J1630; J2060; Q0177; J3490

== ENCOUNTER 2019-09-02 17:10 | Emergency (ER) | payer MEDICAID ==
[~2019-09-02] VITALS: Ht 180.3 cm; Wt 103.5 kg
[~2019-09-02 17:10] MED LIST changes: -DIVA-81 PO; -DIVA500T9 PO; -NICO-631 TD; -PALI3TAB5 PO; +UNABLE TO OBTAIN
[2019-09-02 17:16] VITALS: BP 120/84
== END 2019-09-02 17:37 | disposition home or self-care (01) ==
LOC: ER 17:10
DX: F15.90 Other stimulant use, unspecified, uncomplicated (principal); L98.9 Disorder of the skin and subcutaneous tissue, unspecified; R20.0 Anesthesia of skin; M79.645 Pain in left finger(s); M79.644 Pain in right finger(s); J45.909 Unspecified asthma, uncomplicated; F31.9 Bipolar disorder, unspecified; F20.9 Schizophrenia, unspecified; F17.210 Nicotine dependence, cigarettes, uncomplicated; Z60.2 Problems related to living alone; Z59.0 Homelessness; Z88.0 Allergy status to penicillin; Z88.1 Allergy status to other antibiotic agents
CPT/HCPCS: 99281

== ENCOUNTER 2019-11-03 13:24 | Emergency (ER) | payer MEDICAID ==
[~2019-11-03] VITALS: Ht 172.7 cm; Wt 104.4 kg
[2019-11-03] MEDS ORDERED: PERM60CR4 TOP (14:20)
[2019-11-03] MEDS ORDERED: neomy sulf/polymyx B sulf/HC 10ml otic suspension EACH EAR PRN (14:20)
[2019-11-03 14:36] VITALS: BP 121/70
== END 2019-11-03 14:44 | disposition home or self-care (01) ==
LOC: ER 13:24
DX: H60.93 Unspecified otitis externa, bilateral (principal); J45.909 Unspecified asthma, uncomplicated; F31.9 Bipolar disorder, unspecified; F20.9 Schizophrenia, unspecified; F15.90 Other stimulant use, unspecified, uncomplicated; Z72.89 Other problems related to lifestyle; Z60.2 Problems related to living alone; Z59.0 Homelessness; Z88.1 Allergy status to other antibiotic agents; Z88.0 Allergy status to penicillin; Z79.899 Other long term (current) drug therapy
CPT/HCPCS: 99282; 99283

== ENCOUNTER 2019-12-02 15:28 | Emergency (ER) | payer MEDICAID ==
[~2019-12-02] VITALS: Ht 180.3 cm; Wt 103.7 kg
[~2019-12-02 15:28] MED LIST changes: +PERM60CR4 TOP
[2019-12-02 15:29] VITALS: BP 131/109
--- NOTE | 2019-12-02 15:49 | NUR ---
When calling patient back to bed 2, patient ambulated from bathroom to chair in lobby to grab belongings and over the bed 2 without any difficulty. When patient arrived into room, he requested a pair of clothes and a warm blanket. Patient had a sufficent outfit on for weather. Patient was given a warm blanket and asked to get into gown. Patient complied and I stated that MD and RN would be in shortly to come assess him.
--- NOTE | 2019-12-02 16:03 | NUR ---
patient was suppose to check into [facility] today ut didn't realize that today was the 7th.
[2019-12-02] MEDS ORDERED: ibuprofen tablet 400 MG TABLET PO ONE (16:20)
--- NOTE | 2019-12-02 16:38 | NUR ---
pt refused medication, knee immoblizer and crutches, pt has full ROM of left knee, also c/o abd pain, Carlos Enrique Donohue DENTAL APPLIANCE FIXER aware and has already assessed pt, pt is requesting ride to [place], gave pt bus pass, pt also refused last set of vital signs
--- NOTE | 2019-12-02 16:46 | NUR ---
gave pt socks, pt amb with steady gait to lobby
== END 2019-12-02 16:51 | disposition home or self-care (01) ==
LOC: ER 15:29
DX: M25.562 Pain in left knee (principal); M79.89 Other specified soft tissue disorders; J45.909 Unspecified asthma, uncomplicated; F31.9 Bipolar disorder, unspecified; F20.9 Schizophrenia, unspecified; F15.90 Other stimulant use, unspecified, uncomplicated; Z72.89 Other problems related to lifestyle; Z60.2 Problems related to living alone; Z59.0 Homelessness; Z88.1 Allergy status to other antibiotic agents; Z88.0 Allergy status to penicillin; Z79.899 Other long term (current) drug therapy
CPT/HCPCS: 99281; 99282

== ENCOUNTER 2020-02-23 15:14 | Emergency (ER) | payer MEDICAID ==
[~2020-02-23] VITALS: Ht 170.2 cm; Wt 100.0 kg
[2020-02-23 15:34] VITALS: BP 110/74
[2020-02-23] MEDS ORDERED: SULF1TAB49 PO (16:32)
== END 2020-02-23 16:54 | disposition home or self-care (01) ==
LOC: ER 15:15
DX: L03.113 Cellulitis of right upper limb (principal); M79.601 Pain in right arm; J45.909 Unspecified asthma, uncomplicated; F31.9 Bipolar disorder, unspecified; F20.9 Schizophrenia, unspecified; F15.90 Other stimulant use, unspecified, uncomplicated; Z60.2 Problems related to living alone; Z72.89 Other problems related to lifestyle; Z59.0 Homelessness; Z88.1 Allergy status to other antibiotic agents; Z88.0 Allergy status to penicillin; Z79.2 Long term (current) use of antibiotics; Z79.899 Other long term (current) drug therapy
CPT/HCPCS: 99283

== ENCOUNTER 2020-05-09 13:49 | Emergency (ER) | payer MEDICAID ==
[~2020-05-09] VITALS: Ht 177.8 cm; Wt 86.4 kg
[2020-05-09] MEDS ORDERED: risperiDONE 2mg tablet PO ONE (14:25)
[2020-05-09] MEDS ORDERED: olanzapine 10mg tablet PO SCH (14:25)
[2020-05-09] MEDS ORDERED: olanzapine 10mg tablet PO ONE (14:25)
[2020-05-09 14:39] LABS: BASOPHILS # (AUTO) 0.1 X10'3 (0-0.2); EOSINOPHILS # (AUTO) 0.2 X10'3 (0-0.9); EOSINOPHILS % (AUTO) 2.2 % (0-6); HEMATOCRIT 40.8 % (42.0-52.0); LYMPHOCYTES # (AUTO) 2.7 X10'3 (1.1-4.8); LYMPHOCYTES % (AUTO) 31.7 % (21-51); MEAN CORPUSCULAR HEMOGLOBIN 29.9 PG (27.0-31.0); MEAN CORPUSCULAR HGB CONC 34.3 g/dL (33.0-36.5); MEAN PLATELET VOLUME 9.9 FL (7.4-10.4); MONOCYTES # (AUTO) 0.9 X10'3 (0-0.9); MONOCYTES % (AUTO) 10.6 % (2-12); NEUTROPHILS # (AUTO) 4.6 X10'3 (1.8-7.7); NEUTROPHILS % (AUTO) 54.5 % (42-75); PLATELET COUNT 266 X10'3 (140-440); RED BLOOD COUNT 4.69 X10'6 (4.70-6.10); RED CELL DISTRIBUTION WIDTH 13.6 % (11.5-14.5); WHITE BLOOD COUNT 8.4 X10'3 (4.5-11.0)
[2020-05-09 14:55] LABS: ALANINE AMINOTRANSFERASE 30 U/L (12-78); ALBUMIN/GLOBULIN RATIO 1.1 (1.1-1.5); ALKALINE PHOSPHATASE 68 IU/L (46-116); ANION GAP 9 (8-16); ASPARTATE AMINO TRANSFERASE 23 U/L (10-37); BILIRUBIN,TOTAL 0.5 MG/DL (0.1-1.0); BLOOD UREA NITROGEN 17 MG/DL (7-18); CALCIUM 8.9 MG/DL (8.5-10.1); CHLORIDE 106 MMOL/L (99-107); CREATININE 0.81 MG/DL (0.60-1.10); GLUCOSE 108 MG/DL (70-104); SODIUM 141 MMOL/L (135-145); TOTAL CARBON DIOXIDE 26.1 MMOL/L (24-32); TOTAL PROTEIN 7.7 G/DL (6.4-8.2); eGFR > 90 ML/MIN
--- NOTE | 2020-05-09 15:04 | NUR ---
pt is moved from bed 24 to bed 20 without incident
[2020-05-09 15:05] LABS: ETHANOL < 0.010 GM/DL (0.0-0.010)
--- NOTE | 2020-05-09 15:08 | NUR ---
pt is pacing around, not being cooperative
--- NOTE | 2020-05-09 15:16 | NUR ---
pt was given a sandwich, now laying in bed, no needs at this time
[2020-05-09] MEDS ORDERED: NO HOME MEDS (16:10)
--- NOTE | 2020-05-09 16:21 | NUR ---
pt is up to the bathroom, given cup for UA, calm
--- NOTE | 2020-05-09 17:30 | NUR ---
pt is laying on his left side, asleep, regular breathing observed, no needs at this time
--- NOTE | 2020-05-09 18:30 | NUR ---
pt is laying on his left side, regular breathing observed, no needs at this time
--- NOTE | 2020-05-09 19:44 | NUR ---
pt is asleep on his left side, regular breathing observed, no needs at this time
[2020-05-09] MEDS: olanzapine 10mg tablet PO SCH (20:00)
[2020-05-09] MEDS: risperiDONE 0.5mg tablet PO SCH (20:00)
--- NOTE | 2020-05-09 20:44 | NUR ---
pt is asleep, no agitation observed, regular breathing observed
--- NOTE | 2020-05-09 21:44 | NUR ---
pt is laying on his left side, regular breathing observed, no needs at this time
--- NOTE | 2020-05-09 22:41 | NUR ---
pt is sleeping on his left side, regular breathing present, no needs at this time
--- NOTE | 2020-05-10 00:07 | NUR ---
pt is asleep, regular breathing observed
--- NOTE | 2020-05-10 00:56 | NUR ---
pt is prone in bed, regular breathing present, no needs at this time
--- NOTE | 2020-05-10 02:00 | NUR ---
pt is asleep, regular breathing observed
--- NOTE | 2020-05-10 03:00 | NUR ---
pt is asleep, regular breathing present, will continue to monitor.
--- NOTE | 2020-05-10 03:43 | NUR ---
pt gave urine sample, ambulated to BR
[2020-05-10 04:02] LABS: CLARITY,URINE CLEAR (Clear); COLOR,URINE YELLOW (Yellow); GLUCOSE, URINE NEGATIVE (Neg); KETONES,URINE NEGATIVE (Neg); LEUKOCYTE ESTERASE ,URINE NEGATIVE (Neg); NITRITES, URINE NEGATIVE (Neg); OCCULT BLOOD,URINE NEGATIVE (Neg); PROTEIN,URINE NEGATIVE (Neg); UROBILINOGEN,URINE 0.2 E.U/dL (0.2-1.0)
[2020-05-10 04:06] LABS: UA COLLECTION TYPE CLN CATCH MIDSTREAM
[2020-05-10 04:15] LABS: URINE AMPHETAMINE SCREEN NEGATIVE (Neg); URINE BARBITUATE SCREEN NEGATIVE (Neg); URINE BENZODIAZEPINES SCREEN NEGATIVE (Neg); URINE CANNABINOID SCREEN NEGATIVE (Neg); URINE COCAINE SCREEN NEGATIVE (Neg); URINE METHADONE SCREEN NEGATIVE (Neg); URINE OPIATE SCREEN NEGATIVE (Neg); URINE PHENCYCLIDINE SCREEN NEGATIVE (Neg)
--- NOTE | 2020-05-10 04:54 | NUR ---
faxed packet to [place] office
--- NOTE | 2020-05-10 04:54 | NUR ---
pt is laying on his left side, reg breathing present, will continue to monitor
--- NOTE | 2020-05-10 05:54 | NUR ---
patient ambulated to the bathroom, no needs at this time
--- NOTE | 2020-05-10 06:25 | NUR ---
Pt awoke this AM and has been fidgiting, pacing and doing non-stop activity (changing linens, trying to move bed/chair/table). Spoke with MD Castañeda and pt to receive scheduled 0800 AM meds now.
[2020-05-10] MEDS: risperiDONE 0.5mg tablet PO SCH (06:29)
[2020-05-10] MEDS: olanzapine 10mg tablet PO SCH (06:30)
--- NOTE | 2020-05-10 08:15 | NUR ---
Pt still pacing and unable to sit still. updated and order being put in for Ativan.
[2020-05-10] MEDS: LORazepam 1 MG tablet PO PRN (08:19)
[2020-05-10] MEDS ORDERED: diphenhydrAMINE 50 mg/ml inj IM ONE (09:25)
[2020-05-10] MEDS ORDERED: haloperidol lactate 5mg/ml inj IM ONE (09:25)
[2020-05-10] MEDS ORDERED: LORazepam 2 mg/ml vial IM ONE (09:25)
--- NOTE | 2020-05-10 18:30 | NUR ---
Patient is sleeping on right side in bed. He was sedated on day shift. Patient does not awaken to voice. He does self reposition in bed. We are awaiting [facility] to eval this patient.
--- NOTE | 2020-05-10 18:48 | NUR ---
Note joshlizbeth in EDM - 05/10/20 at 1946 by JERSEY Patient is very sleepy, he naps intermittently. A saline lock is present to his left EJ. Patients right arm is bandadged. A good radial pulse is present. Patient has had no IV fluids as yet. Two litres of NaC. ar orded. IV Zosyn was established by this job specification writer.
--- NOTE | 2020-05-10 19:00 | NUR ---
Fabricio liu in ED - 05/10/20 at 1950 by JERSEY IV NaCl, the first liter is started at 1000 cc hr. Patient is resting quietly.
--- NOTE | 2020-05-10 19:30 | NUR ---
Patient is being evaluated by [facility]. He awakens to verbal stimuli but remains groggy. A [address] [facility], it iscomplete. [facility] personnel (Varun) is aware of incomplete 5150.
--- NOTE | 2020-05-10 20:50 | NUR ---
Patient is sleeping and will not awaken except briefly. He will not cooperate with questioning. Varun, social human services assistants from [facility] has attempted evaluation of patient twice without success. The 5150 is invalid as written. Varun from [facility] states he has informed Dr. Oneil that there is no 5150 at this time. Patient will be evaluated by [facility] in the morning if he is compliant. In the meantime this food writer and other staff will observe patient closely and advise ER MD of any patient concerns or needs.
--- NOTE | 2020-05-10 20:58 | NUR ---
Zack Guillen RN was advised by this jingle writer of patients legal status update.
--- NOTE | 2020-05-10 22:32 | NUR ---
Patilent is sleeping quietly on his right side. No distress.
[2020-05-11] MEDS: olanzapine 10mg tablet PO SCH ×3 (03:05→19:54)
[2020-05-11] MEDS: risperiDONE 0.5mg tablet PO SCH ×3 (03:05→19:54)
--- NOTE | 2020-05-11 03:15 | NUR ---
Fabricio liu in [facility] - 05/11/20 at 0316 by JERSEY Patient sleeping quietly on her right side.
--- NOTE | 2020-05-11 04:20 | NUR ---
Patient is awake and out of bed. Patient is being resistant to care. Patient is encouraged to return to bed. Patient starts doing push ups on the floor. Patient tells this caption writer that he has been released from residential. Patient gradually returns to bed and starts to sleep.
--- NOTE | 2020-05-11 04:32 | NUR ---
Security has been called. Patient resistant to care. Verbal threats to staff, raising his voice. Patient approached this casualty underwriter and postured in a threatening manner. Dr. Wyatt called to observe. Patient is not on a hold. Patient told Dr. Wyatt he would take sedation medications. Patient took oral Benadry, Haldol, and Ativan. Patient is threatening towards security, he continues to advance at them despite warnings from security to step back. ER commanding officer garage is advised.
[2020-05-11] MEDS ORDERED: diphenhydrAMINE 25mg capsule PO ONE (04:50)
[2020-05-11] MEDS ORDERED: haloperidol 5mg tablet PO ONE (04:50)
[2020-05-11] MEDS ORDERED: LORazepam 1 MG tablet PO ONE (04:50)
--- NOTE | 2020-05-11 05:35 | NUR ---
Patient continues with his non compliant behavior. He reaches into his scrubs and fondles himself. Patient appears to take pleadure being disruptive. Security remains present for staff and other patient safety.
[2020-05-11] MEDS ORDERED: quetiapine 100mg tablet PO SCH (05:45)
[2020-05-11] MEDS ORDERED: QUEtiapine 25mg tablet PO ONE (05:45)
[2020-05-11] MEDS ORDERED: quetiapine 100mg tablet PO PRN (06:35)
[2020-05-11] MEDS ORDERED: QUEtiapine 25mg tablet PO PRN (06:40)
--- NOTE | 2020-05-11 06:50 | NUR ---
On RN's arrival on the unit patient has been getting up and down, wiping the next rooms [id number], mumbling non-stop and attempting to walk up to the nurse's station. Security standing by and attempting to re-direct patient to no avail.
--- NOTE | 2020-05-11 08:13 | NUR ---
Patient sleeping on right side. No distress observed. Continue to monitor.
--- NOTE | 2020-05-11 08:34 | NUR ---
Patient awoke and RN was assisting him in getting his breakfast. Patient said he needed to use the bathroom. RN told patient to go to the bathroom. RN then walked back to the nurse's station and RN heard patient urinating on the floor next to his bed. RN told patient to stop and go to the BR which he did.
--- NOTE | 2020-05-11 08:39 | NUR ---
Patient eating breakfast. No distress observed. Continue to monitor.
--- NOTE | 2020-05-11 10:10 | NUR ---
[facility] speaking with patient.
--- NOTE | 2020-05-11 12:18 | NUR ---
Patient sleeping on right side. No distress observed. Continue to monitor.
--- NOTE | 2020-05-11 12:47 | NUR ---
PATIENT AMBULATED TO BATHROOM WNL
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
--- NOTE | 2020-05-11 15:05 | NUR ---
Patient sleeping on left side. No distress observed. Continue to monitor.
--- NOTE | 2020-05-11 16:24 | NUR ---
Patient just got off the phone with his mother who lives in [place]. No distress observed. Continue to monitor.
[2020-05-11] MEDS: LORazepam 1 MG tablet PO PRN (18:04)
[2020-05-11] MEDS ORDERED: diphenhydrAMINE 50 mg/ml inj IM ONE (19:15)
[2020-05-11] MEDS ORDERED: LORazepam 2 mg/ml vial IM ONE (19:15)
[2020-05-11] MEDS ORDERED: haloperidol lactate 5mg/ml inj IM ONE (19:15)
--- NOTE | 2020-05-11 19:28 | NUR ---
pt posturing to staff, attempted to put his hands on security. consult ELAINE pat, order for haldol 10 mg, ativan 2 mg, benadryl 50 mg. pt is now is restraints, attempting to kick staff, making threatening statements.
--- NOTE | 2020-05-11 19:44 | NUR ---
pt assessed, no s/s of distress noted, cap refill on all four extremeties is wnl. pt is making delusional statements.
--- NOTE | 2020-05-11 20:31 | NUR ---
pt is still restless, attempting to remove restraints.
--- NOTE | 2020-05-11 21:06 | NUR ---
pt is resting quietly, no s/s of distress noted. cap refills to extremeties wnl, rr unlabored.
--- NOTE | 2020-05-11 22:26 | NUR ---
pt still resistant to care, urinated on floor
--- NOTE | 2020-05-11 22:48 | NUR ---
pt's restraints have been removed. pt is resting in bed quietly, no s/s of distress noted.
--- NOTE | 2020-05-12 00:25 | NUR ---
pt is sleeping, no s/s of distress noted. rr unlabored.
--- NOTE | 2020-05-12 01:50 | NUR ---
pt continues to sleep, no s/s of distress noted.
--- NOTE | 2020-05-12 04:17 | NUR ---
pt was up and out of bed, being intrusive with other patients. when attempting to redirect pt back to bed, pt began posturing and attempted to hit this rn. security called, pt returned to his bed and became cooperative
--- NOTE | 2020-05-12 07:29 | NUR ---
Pt up out of bed trying to wander around the unit. He was asked multiple times to please go back to his area/bed. Security came through unit and pt went back to bed.
[2020-05-12] MEDS: olanzapine 10mg tablet PO SCH ×2 (08:15→20:25)
[2020-05-12] MEDS: risperiDONE 0.5mg tablet PO SCH ×2 (08:15→20:24)
--- NOTE | 2020-05-12 08:20 | NUR ---
Pt ate breakfast and took am medications
[2020-05-12] MEDS: LORazepam 1 MG tablet PO PRN (10:12)
--- NOTE | 2020-05-12 10:15 | NUR ---
Pt's mother called while pt was asleep. Mother states she will call back. Pt woke up and still restless. Pt agreed to take ativan. Ativan given po
--- NOTE | 2020-05-12 10:55 | NUR ---
Pt made inappropriate sexulat gestures toward tech. Pt told to stop Addendum: 05/12/20 at 1055 by ROSA * sexual.
--- NOTE | 2020-05-12 12:50 | NUR ---
Lunch served at pt bedside, pt sleeping. Resp even, unlabored.
--- NOTE | 2020-05-12 14:31 | NUR ---
Pt sleeping, resp even, unlabored
--- NOTE | 2020-05-12 17:07 | NUR ---
Pt sleeping. Resp even, unlabored
--- NOTE | 2020-05-12 18:43 | NUR ---
Pt resting in bed after finishing dinner.
--- NOTE | 2020-05-12 19:00 | NUR ---
Patient is sleeping quietly on his right side. No distress.
[2020-05-12] MEDS ORDERED: haloperidol lactate 5mg/ml inj IM ONE (19:10)
[2020-05-12] MEDS ORDERED: diphenhydrAMINE 50 mg/ml inj IM ONE (19:10)
[2020-05-12] MEDS ORDERED: LORazepam 2 mg/ml vial IM ONE (19:10)
--- NOTE | 2020-05-12 20:29 | NUR ---
Patient is awake for nightly medications. He exhibits some labile behavior, he is redirected to lay back down.
--- NOTE | 2020-05-12 21:23 | NUR ---
Patient is sleeping on his left side in bed. In view from the nursing station. No distress.
--- NOTE | 2020-05-13 02:51 | NUR ---
Patient is sleeping quietly on his left side.
--- NOTE | 2020-05-13 06:44 | NUR ---
Up and pacing the floor, reminded again and again to stay in his area by sitter. Security to bedside x2. Given snacks
--- NOTE | 2020-05-13 06:58 | NUR ---
Patient given Benadryl, ativan and haldol injections with security at bedside and he willingly took them sitting at edge of bed. Continues to be disruptful and ignoring redirection. Security remains at bedside.
--- NOTE | 2020-05-13 09:01 | NUR ---
Laying in bed with eyes closed on right side. Respirations normal.
[2020-05-13] MEDS: olanzapine 10mg tablet PO SCH ×2 (09:34→20:02)
[2020-05-13] MEDS: risperiDONE 0.5mg tablet PO SCH ×2 (09:34→20:02)
--- NOTE | 2020-05-13 09:36 | NUR ---
Patient awake on own and willing took his medications.
--- NOTE | 2020-05-13 11:01 | NUR ---
Note noe in [facility] - 05/13/20 at 1102 by ANY Patient ambulatory to bed 21. Patient calm and in no distress. Continue to monitor.
--- NOTE | 2020-05-13 12:43 | NUR ---
Up to bathroom, drowsy. Agreeable to direction at this time.
--- NOTE | 2020-05-13 13:30 | NUR ---
Resting with eyes closed, respirations normal.
--- NOTE | 2020-05-13 16:22 | NUR ---
Up out of bed asking for a snack
--- NOTE | 2020-05-13 17:36 | NUR ---
Resting in bed with eyes closed on left side.
--- NOTE | 2020-05-13 18:46 | NUR ---
Patient is in bed sleeping quietly. No distress noted. In view from nurses station.
[2020-05-13] MEDS ORDERED: diphenhydrAMINE 50 mg/ml inj IM ONE (19:20)
[2020-05-13] MEDS ORDERED: haloperidol lactate 5mg/ml inj IM ONE (19:20)
[2020-05-13] MEDS ORDERED: LORazepam 2 mg/ml vial IM ONE (19:20)
--- NOTE | 2020-05-13 20:00 | NUR ---
Late entry. Patient exited bed, became verbal and threatening to staff. Security called. Patient postured towards security, he threatened to harm them. Dr. Phan consulted. Patient was given Haldol 10 mg IM, Benadryl 50 mg IM, Ativan 2 mg IM.
--- NOTE | 2020-05-13 20:08 | NUR ---
Patient is calming now. He has taken evening medications. Vital signs are being taken, he will be monitored. Patient is in direct view from nursing station.
--- NOTE | 2020-05-13 21:31 | NUR ---
Patient sleeping quiety on his right side. Good color. W/D. In view from nursing station.
--- NOTE | 2020-05-13 22:10 | NUR ---
Patient in a prone position, sleeping quietly. Patient self repositions.
--- NOTE | 2020-05-13 23:20 | NUR ---
Patient sleeping quietly in a prone position, legs flexed.
--- NOTE | 2020-05-14 01:31 | NUR ---
Patient in view from nursing station. He sleeps on his left side. Good color, no distress noted.
--- NOTE | 2020-05-14 03:06 | NUR ---
Patient sleeping on his left side. No distress.
--- NOTE | 2020-05-14 05:17 | NUR ---
Pt resting in bed, appears to be sleeping, [id number]
--- NOTE | 2020-05-14 07:00 | NUR ---
pt is sleeping. no issues at this time
[2020-05-14] MEDS: risperiDONE 0.5mg tablet PO SCH ×2 (07:09→20:00)
[2020-05-14] MEDS: olanzapine 10mg tablet PO SCH ×2 (07:09→20:00)
[2020-05-14] MEDS: LORazepam 1 MG tablet PO PRN (07:10)
--- NOTE | 2020-05-14 08:03 | NUR ---
pt is sleeping
--- NOTE | 2020-05-14 09:00 | NUR ---
PT IS RESTING. NO ISSUES AT THIS TIME
--- NOTE | 2020-05-14 10:00 | NUR ---
PT IS SLEEPING
--- NOTE | 2020-05-14 11:00 | NUR ---
PT IS SLEEPING. NO ISSUES AT THIS TIME
--- NOTE | 2020-05-14 12:00 | NUR ---
PT IS RESTING. PT HAS BEEN VERY CALM AND COOPERATIVE TODAY
--- NOTE | 2020-05-14 13:00 | NUR ---
PT IS RESTING
--- NOTE | 2020-05-14 14:00 | NUR ---
NO ISSUES AT THIS TIME. PT IS SLEEPING
--- NOTE | 2020-05-14 15:00 | NUR ---
pt is sleeping
--- NOTE | 2020-05-14 16:00 | NUR ---
pt is sleeping
--- NOTE | 2020-05-14 17:00 | NUR ---
pt is sleeping
--- NOTE | 2020-05-14 19:31 | NUR ---
Pt sleeping since start of shift.
--- NOTE | 2020-05-14 21:22 | NUR ---
Pt woke up for meds went back to sleep is sleeping at this time.
--- NOTE | 2020-05-14 21:45 | NUR ---
pt continues to sleep.
--- NOTE | 2020-05-14 23:45 | NUR ---
Pt continues to sleep.
--- NOTE | 2020-05-15 01:58 | NUR ---
Pt sleeping resp even and unlabored.
[2020-05-15] MEDS: LORazepam 1 MG tablet PO PRN ×2 (05:51→20:20)
--- NOTE | 2020-05-15 05:56 | NUR ---
Pt awake pacing on unit. Thinking disorganized, tangential, delusional at one point he thought we are in [facility]. Given prn Ativan for agitation so far not effective.
[2020-05-15] MEDS ORDERED: MIDAZolam 5mg/ml 2ml vial IM ONE ×2 (06:10)
[2020-05-15] MEDS: olanzapine 10mg tablet PO SCH ×2 (06:24→20:20)
[2020-05-15] MEDS: risperiDONE 0.5mg tablet PO SCH ×2 (06:24→20:20)
[2020-05-15] MEDS ORDERED: haloperidol lactate 5mg/ml inj IM ONE (06:35)
[2020-05-15] MEDS ORDERED: LORazepam 2 mg/ml vial IM ONE (06:35)
[2020-05-15] MEDS ORDERED: diphenhydrAMINE 50 mg/ml inj IM ONE (06:35)
--- NOTE | 2020-05-15 07:01 | NUR ---
pt is up and down in his bed. restless. pt is uncooperative with staff. pt picked up a chair and was attempting to carry it around. pt is talking non-sense.
--- NOTE | 2020-05-15 08:00 | NUR ---
pt is sleeping. wakes up at times and walks around for few mintues
--- NOTE | 2020-05-15 09:00 | NUR ---
pt is sleeping
--- NOTE | 2020-05-15 10:03 | NUR ---
breaking primary RN, pt is laying on his left side, eyes closed, regular breathing observed, no needs at this time
--- NOTE | 2020-05-15 11:00 | NUR ---
Pt is resting.
--- NOTE | 2020-05-15 12:00 | NUR ---
pt is resting
--- NOTE | 2020-05-15 13:00 | NUR ---
Pt is sleeping. No concerns at this time
--- NOTE | 2020-05-15 14:00 | NUR ---
pt is sleeping
--- NOTE | 2020-05-15 15:00 | NUR ---
pt is sleeping
--- NOTE | 2020-05-15 16:00 | NUR ---
pt is sleeping
--- NOTE | 2020-05-15 17:00 | NUR ---
pt is sleeping
--- NOTE | 2020-05-15 18:00 | NUR ---
pt ate his dinner
--- NOTE | 2020-05-15 18:12 | NUR ---
danny lucas [phone]
--- NOTE | 2020-05-15 19:15 | NUR ---
Pt was encouraged to go into bathroom for personal hygiene care with warm wipes. Pt refused to do so and stated the nurse was disrespectful for saying he needed wash up. Pt then began to call the nurse a "bitch" and "cunt."
--- NOTE | 2020-05-16 02:35 | NUR ---
PT AMBULATED UP TO BATHROOM AND PROCEEDED TO URINATE ON BATHROOM FLOOR AND CORNER OF BATHROOM INTENTIONALLY. WHEN ASKED WHY PT DID THIS, PT STATES "I DONT KNOW" AND AMBUALTED BACK TO BED WITHOUT FUTHER INCIDENT
--- NOTE | 2020-05-16 03:01 | NUR ---
Pt urinated on bathroom floor right after given additonal snacks. [facility] was notified for clean up.
--- NOTE | 2020-05-16 04:30 | NUR ---
pt awake up out of bed asking for crackers . redirected patient back to bed .
[2020-05-16] MEDS ORDERED: diphenhydrAMINE 50 mg/ml inj IM ONE ×2 (07:00→11:00)
[2020-05-16] MEDS ORDERED: LORazepam 2 mg/ml vial IM ONE ×2 (07:00→11:00)
[2020-05-16] MEDS ORDERED: haloperidol lactate 5mg/ml inj IM ONE ×2 (07:00→11:00)
--- NOTE | 2020-05-16 07:05 | NUR ---
Pt. became agitated, verbally threatening and posturing to fight another pt. Unable to redirect pt. Pt. is disorganized and delusional, states, "I am in the and will fight for my country". Security called and order received for Haldol 10mg, Ativan 2mg, and Benadryl 50mg IM. Pt. received medication voluntarily.
[2020-05-16] MEDS: olanzapine 10mg tablet PO SCH ×2 (07:57→20:06)
[2020-05-16] MEDS: risperiDONE 0.5mg tablet PO SCH ×2 (07:57→20:06)
[2020-05-16] MEDS: LORazepam 1 MG tablet PO PRN ×2 (07:57→20:06)
--- NOTE | 2020-05-16 08:43 | NUR ---
Pt. continues to not follow verbal redirection. Pt. shouting, attempting to walk into areas he is not allowed to, shadow boxing. RN received order for restraints from Dr. Mireles. Pt. cooperative with restraints.
--- NOTE | 2020-05-16 08:46 | NUR ---
sent RN on a 15min break, patient had security at bedside as he was just put in to 4-point restraints, the patient was laying supine, his respirations appeared normal, and he was in stable condition. Making random statements.
--- NOTE | 2020-05-16 09:00 | NUR ---
RN returned from break. Pt. remains in 4 point restraints due to unpredictable behavior. Pt. shouting at times while in restraints.
--- NOTE | 2020-05-16 09:45 | NUR ---
1:1 interview done at bedside. Pt. is A&O to self and place. When if he knows why he is in restraints, "Pt. states, "That lady keeps bossing me around". RN reinforced to pt. about behaviors and consequences. Pt. has tangential and d/o thought process. When asked why he is here pt. states, "We lost a marine and they brought us here". Then pt. states, "My dad was here and he needed a kidney so I gave him one". Pt. singing and banging on bed.
--- NOTE | 2020-05-16 11:00 | NUR ---
Pt. released from restraints to use bathroom. Pt. had x1 normal, formed, brown BM.
--- NOTE | 2020-05-16 11:08 | NUR ---
Pt. continues to not follow instructions, attempting to enter areas that are not allowed. Pt. also provoking other patient's with threatening, talk. RN received order for Haldol 10mg, Benadryl 50mg, Ativan 2mg IM. Pt. voluntarily received medication in left and right gluteal sites.
--- NOTE | 2020-05-16 11:43 | NUR ---
Pt. unable to follow instructions, provoking and posturing towards male peer. Provider contacted and pt. placed in 4 point restraints per MD order.
--- NOTE | 2020-05-16 12:50 | NUR ---
Pt. reported need to have bowel movement. RN called security to escort pt. to bathroom. RN informed that pt. was urinating on the mccracken and floor. Pt. escorted back to his room and placed back in restraints. Pt. making verbal threats to RN, states, "Do you think I'm gonna fight you?!"
--- NOTE | 2020-05-16 13:45 | NUR ---
Pt. asleep and restraints removed.
--- NOTE | 2020-05-16 15:10 | NUR ---
PT WALKING AROUND, TALKATIVE.
[2020-05-16 17:06] VITALS: BP 127/81
--- NOTE | 2020-05-16 17:10 | NUR ---
Pt. asleep in bed, laying on right side. normal rate and rhythm of respirations observed. Pt. in no apparent distress.
--- NOTE | 2020-05-16 18:55 | NUR ---
Pt resting quietly, respirations normal, no s/s of distress.
--- NOTE | 2020-05-16 19:58 | NUR ---
Pt resting quietly, respirations normal, no s/s of distress.
--- NOTE | 2020-05-16 20:00 | NUR ---
Pt woke up and ate dinner. Stated it was morning and began pacing the nursing unit. PM meds administered.
--- NOTE | 2020-05-16 21:00 | NUR ---
Pt resting quietly, respirations normal, no s/s of distress.
--- NOTE | 2020-05-16 22:00 | NUR ---
Pt resting quietly, respirations normal, no s/s of distress.
--- NOTE | 2020-05-16 23:20 | NUR ---
Pt resting quietly, respirations normal, no s/s of distress.
--- NOTE | 2020-05-17 01:00 | NUR ---
Pt resting quietly, respirations normal, no s/s of distress.
--- NOTE | 2020-05-17 02:46 | NUR ---
Pt resting quietly, respirations normal, no s/s of distress.
--- NOTE | 2020-05-17 03:50 | NUR ---
Pt resting quietly, respirations normal, no s/s of distress.
[2020-05-17] MEDS: risperiDONE 0.5mg tablet PO SCH (06:39)
[2020-05-17] MEDS: olanzapine 10mg tablet PO SCH (06:39)
[2020-05-17] MEDS: LORazepam 1 MG tablet PO PRN (06:39)
== END 2020-05-17 09:44 | disposition home or self-care (01) ==
LOC: ER 13:49
DX: F20.9 Schizophrenia, unspecified (principal); Z20.828 Contact with and (suspected) exposure to other viral communicable diseases; J45.909 Unspecified asthma, uncomplicated; F31.9 Bipolar disorder, unspecified; F17.200 Nicotine dependence, unspecified, uncomplicated; F15.90 Other stimulant use, unspecified, uncomplicated; Z87.440 Personal history of urinary (tract) infections; Z72.89 Other problems related to lifestyle; Z59.0 Homelessness; Z88.0 Allergy status to penicillin; Z88.1 Allergy status to other antibiotic agents; Z79.899 Other long term (current) drug therapy
CPT/HCPCS: 36415; 80053; 80305; 80320; 81003; 84443; 85025; 87635; 96372; 99285; C9803; J1200; J1630; J2060

== ENCOUNTER 2020-05-21 19:15 | Emergency (ER) | payer MEDICAID ==
[~2020-05-21] VITALS: Ht 167.6 cm; Wt 85.6 kg
[~2020-05-21 19:15] MED LIST changes: +NO HOME MEDS; -PERM60CR4 TOP; -UNABLE TO OBTAIN
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
--- NOTE | 2020-05-21 20:45 | NUR ---
PT MOVED TO FT BED B AND PLACED ON MONITOR
--- NOTE | 2020-05-21 21:00 | NUR ---
PT ASLEEP RESP EVEN UIN LABORED PT AUROSABLE TO VOICE AND TOUCH BYT WILL NOT ANSWER QUESTIONS AT THIS TIME
[2020-05-21 22:06] VITALS: BP 109/53
--- NOTE | 2020-05-21 22:15 | NUR ---
PT LABS DRAWN , PT AWAKE DIFFICULT TO ANSWER QUESTIONS . BUT CALM
--- NOTE | 2020-05-21 22:15 | NUR ---
PT FED A TURKEY SANDWITCH AND JUICE
[2020-05-21 22:17] LABS: URINE AMPHETAMINE SCREEN NEGATIVE (Neg); URINE BARBITUATE SCREEN NEGATIVE (Neg); URINE BENZODIAZEPINES SCREEN NEGATIVE (Neg); URINE CANNABINOID SCREEN POSITIVE (Neg); URINE COCAINE SCREEN NEGATIVE (Neg); URINE METHADONE SCREEN NEGATIVE (Neg); URINE OPIATE SCREEN NEGATIVE (Neg); URINE PHENCYCLIDINE SCREEN NEGATIVE (Neg)
[2020-05-21 22:24] LABS: MEAN CORPUSCULAR HGB CONC 33.6 g/dL (33.0-36.5)
[2020-05-21 22:26] LABS: BASOPHILS # (AUTO) 0.1 X10'3 (0-0.2); BASOPHILS % (AUTO) 0.8 % (0-1); EOSINOPHILS # (AUTO) 0.4 X10'3 (0-0.9); EOSINOPHILS % (AUTO) 3.8 % (0-6); HEMATOCRIT 35.7 % (42.0-52.0); LYMPHOCYTES # (AUTO) 3.7 X10'3 (1.1-4.8); LYMPHOCYTES % (AUTO) 33.6 % (21-51); MEAN CORPUSCULAR VOLUME 89.3 FL (78-98); MEAN PLATELET VOLUME 9.7 FL (7.4-10.4); MONOCYTES % (AUTO) 9.2 % (2-12); NEUTROPHILS # (AUTO) 5.8 X10'3 (1.8-7.7); NEUTROPHILS % (AUTO) 52.6 % (42-75); PLATELET COUNT 226 X10'3 (140-440); RED CELL DISTRIBUTION WIDTH 13.6 % (11.5-14.5); WHITE BLOOD COUNT 11.1 X10'3 (4.5-11.0)
[2020-05-21 22:30] LABS: ALANINE AMINOTRANSFERASE 58 U/L (12-78); ALBUMIN 3.3 G/DL (3.4-5.0); ALKALINE PHOSPHATASE 76 IU/L (46-116); ANION GAP 4 (8-16); ASPARTATE AMINO TRANSFERASE 35 U/L (10-37); BILIRUBIN,TOTAL 0.2 MG/DL (0.1-1.0); BLOOD UREA NITROGEN 13 MG/DL (7-18); BUN/CREATININE RATIO 18.6 (5.4-32.0); CALCIUM 8.6 MG/DL (8.5-10.1); CHLORIDE 108 MMOL/L (99-107); ETHANOL < 0.010 GM/DL (0.0-0.010); GLUCOSE 112 MG/DL (70-104); POTASSIUM 4.3 MMOL/L (3.5-5.1); SODIUM 142 MMOL/L (135-145); TOTAL PROTEIN 6.7 G/DL (6.4-8.2); eGFR > 90 ML/MIN
[2020-05-21 22:35] LABS: ACETAMINOPHEN < 2.0 UG/ML (10-30)
--- NOTE | 2020-05-21 22:45 | NUR ---
PT AWAKE ALERT AND ORIENTATED . TALKING AND ABLE TO AMBULATE YO THE BATHROOM WITH STEADY GAIT . PATIENT GIVEN FOOD AND TWO PAIR OF SOCKS FOR HIS FEET . PT DECLINES TO STATE WHERE HE WOULD LIKE TO HAVE A ATXI AND HAS ASKED TO BE TAKEN TO THE BUS STOP . PT ESCORTED OFF UNIT BY SECURITY AND VALUERURIAH CARDOZA TO FRONT OF FACILITY WHERE HE AMBULATED TO THE BUS STOP .
--- NOTE | 2020-05-21 22:47 | NUR ---
CALLED [facility] FOR PATIENT TO BE SENT THERE FOR THE NIGHT
--- NOTE | 2020-05-21 22:47 | NUR ---
ELAINE TAN TO SEE PATIENT
[2020-05-21] MEDS ORDERED: DIVA250T15 PO (22:49)
[2020-05-21] MEDS ORDERED: HALO5TAB PO (22:49)
--- NOTE | 2020-05-21 22:49 | NUR ---
[facility] DECLINED HAVING THE PATIENT ROOM THERE FOR THE NIGHT . WILL NOTIFY MD AND CHARGE NURSE
--- NOTE | 2020-05-21 22:55 | NUR ---
PT STATED HE COULD CALLL STANISLAV AT [phone] NO ANSWER IN VALID NUMBER
--- NOTE | 2020-05-21 22:55 | NUR ---
PT REPORTS HIS MOTHER IN [facility] KNOW WHAT HE TAKES . PT REPORTS THAT HE DID NOT FILL HIS PRESCRIPTION ON HIS DISCHARGE . PT EXTERNAL MEDICATION HX DOES NOT REFLECT ANY RECENT FILLS . PT SAYS HE " DOES NOT KNOW"
--- NOTE | 2020-05-21 23:03 | NUR ---
PT MOTHER WAS PHONED AT [phone] THIS NUMBER HAS BEEN DISCONNECTED NAD IS NO LONGER IN THE SERVICE
== END 2020-05-21 23:00 | disposition home or self-care (01) ==
LOC: ER 19:15
DX: F31.9 Bipolar disorder, unspecified (principal); F20.9 Schizophrenia, unspecified; J45.909 Unspecified asthma, uncomplicated; F15.90 Other stimulant use, unspecified, uncomplicated; Z59.0 Homelessness; Z87.440 Personal history of urinary (tract) infections; Z72.89 Other problems related to lifestyle; Z60.2 Problems related to living alone; Z88.1 Allergy status to other antibiotic agents; Z88.0 Allergy status to penicillin; Z79.899 Other long term (current) drug therapy
CPT/HCPCS: 36415; 80053; 80178; 80305; 80320; 80329; 85025; 99283; 99284

== ENCOUNTER → 2020-05-22 | Emergency (ER) | payer SELFPAY ==
[~2020-05-22] VITALS: Ht 167.6 cm; Wt 85.0 kg
[~2020-05-22] MED LIST changes: +DIVA250T15 PO; +HALO5TAB PO
== END | disposition home or self-care (01) ==
LOC: ER 09:57
DX: Z13.89 Encounter for screening for other disorder (principal); J45.909 Unspecified asthma, uncomplicated; F12.90 Cannabis use, unspecified, uncomplicated; F15.90 Other stimulant use, unspecified, uncomplicated; E11.9 Type 2 diabetes mellitus without complications; F17.200 Nicotine dependence, unspecified, uncomplicated; Z87.440 Personal history of urinary (tract) infections; Z79.4 Long term (current) use of insulin; Z72.89 Other problems related to lifestyle; Z59.0 Homelessness; Z88.0 Allergy status to penicillin; Z88.1 Allergy status to other antibiotic agents; Z79.899 Other long term (current) drug therapy
CPT/HCPCS: 99281

== ENCOUNTER 2020-05-24 09:21 | Emergency (ER) | payer SELFPAY ==
[~2020-05-24] VITALS: Ht 167.6 cm; Wt 90.0 kg
--- NOTE | 2020-05-24 09:52 | NUR ---
PT WOULD NOT SIT STILL OR KEEP BP CUFF ON WILL TRY AGAIN
[2020-05-24 10:16] LABS: BASOPHILS # (AUTO) 0.1 X10'3 (0-0.2); BASOPHILS % (AUTO) 1.3 % (0-1); EOSINOPHILS # (AUTO) 0.2 X10'3 (0-0.9); EOSINOPHILS % (AUTO) 3.3 % (0-6); HEMATOCRIT 34.1 % (42.0-52.0); HEMOGLOBIN 11.6 g/dl (14.0-17.9); LYMPHOCYTES # (AUTO) 2.5 X10'3 (1.1-4.8); LYMPHOCYTES % (AUTO) 34.3 % (21-51); MEAN CORPUSCULAR HEMOGLOBIN 29.7 PG (27.0-31.0); MEAN CORPUSCULAR HGB CONC 33.9 g/dL (33.0-36.5); MEAN CORPUSCULAR VOLUME 87.7 FL (78-98); MEAN PLATELET VOLUME 9.4 FL (7.4-10.4); MONOCYTES # (AUTO) 0.6 X10'3 (0-0.9); MONOCYTES % (AUTO) 8.6 % (2-12); NEUTROPHILS # (AUTO) 3.8 X10'3 (1.8-7.7); NEUTROPHILS % (AUTO) 52.5 % (42-75); PLATELET COUNT 230 X10'3 (140-440); RED BLOOD COUNT 3.89 X10'6 (4.70-6.10); RED CELL DISTRIBUTION WIDTH 13.8 % (11.5-14.5); WHITE BLOOD COUNT 7.3 X10'3 (4.5-11.0)
[2020-05-24 10:19] LABS: URINE AMPHETAMINE SCREEN NEGATIVE (Neg); URINE BARBITUATE SCREEN NEGATIVE (Neg); URINE BENZODIAZEPINES SCREEN NEGATIVE (Neg); URINE CANNABINOID SCREEN POSITIVE (Neg); URINE COCAINE SCREEN NEGATIVE (Neg); URINE METHADONE SCREEN NEGATIVE (Neg); URINE OPIATE SCREEN NEGATIVE (Neg); URINE PHENCYCLIDINE SCREEN NEGATIVE (Neg)
[2020-05-24 10:26] LABS: ALANINE AMINOTRANSFERASE 46 U/L (12-78); ALBUMIN 3.4 G/DL (3.4-5.0); ALKALINE PHOSPHATASE 64 IU/L (46-116); ANION GAP 6 (8-16); ASPARTATE AMINO TRANSFERASE 26 U/L (10-37); BILIRUBIN,TOTAL 0.3 MG/DL (0.1-1.0); BLOOD UREA NITROGEN 13 MG/DL (7-18); BUN/CREATININE RATIO 24.5 (5.4-32.0); CALCIUM 8.3 MG/DL (8.5-10.1); CHLORIDE 106 MMOL/L (99-107); CREATININE 0.53 MG/DL (0.60-1.10); GLUCOSE 91 MG/DL (70-104); POTASSIUM 4.2 MMOL/L (3.5-5.1); SODIUM 141 MMOL/L (135-145); TOTAL CARBON DIOXIDE 28.7 MMOL/L (24-32); TOTAL PROTEIN 6.7 G/DL (6.4-8.2); eGFR > 90 ML/MIN
[2020-05-24 10:37] LABS: CLARITY,URINE CLEAR (Clear); COLOR,URINE STRAW (Yellow); GLUCOSE, URINE NEGATIVE (Neg); KETONES,URINE NEGATIVE (Neg); LEUKOCYTE ESTERASE ,URINE NEGATIVE (Neg); NITRITES, URINE NEGATIVE (Neg); OCCULT BLOOD,URINE NEGATIVE (Neg); PROTEIN,URINE NEGATIVE (Neg); UROBILINOGEN,URINE 0.2 E.U/dL (0.2-1.0)
[2020-05-24 10:38] LABS: UA COLLECTION TYPE VOIDED
== END 2020-05-24 12:47 ==
LOC: ER 09:21
DX: F23 Brief psychotic disorder (principal); J45.909 Unspecified asthma, uncomplicated; F31.9 Bipolar disorder, unspecified; F12.90 Cannabis use, unspecified, uncomplicated; F15.90 Other stimulant use, unspecified, uncomplicated; Z87.440 Personal history of urinary (tract) infections; Z72.89 Other problems related to lifestyle; Z60.2 Problems related to living alone; Z59.0 Homelessness; Z88.0 Allergy status to penicillin; Z88.1 Allergy status to other antibiotic agents; Z79.899 Other long term (current) drug therapy
CPT/HCPCS: 36415; 80053; 80305; 81003; 85025; 99285

== ENCOUNTER 2021-04-08 01:56 | Emergency (ER) | payer MEDICAID ==
[~2021-04-08] VITALS: Ht 172.7 cm; Wt 100.0 kg
[2021-04-08] MEDS ORDERED: dexamethasone 4mg tablet PO ONE (02:30)
[2021-04-08] MEDS ORDERED: AZIT500T9 PO (02:34)
[2021-04-08 03:07] VITALS: BP 130/88
== END 2021-04-08 03:08 | disposition home or self-care (01) ==
LOC: ER 01:56
DX: J02.9 Acute pharyngitis, unspecified (principal); E11.8 Type 2 diabetes mellitus with unspecified complications; F12.10 Cannabis abuse, uncomplicated; F15.10 Other stimulant abuse, uncomplicated; J45.909 Unspecified asthma, uncomplicated; F31.9 Bipolar disorder, unspecified; F20.9 Schizophrenia, unspecified; Z59.00 Homelessness unspecified; Z88.0 Allergy status to penicillin; Z88.1 Allergy status to other antibiotic agents
CPT/HCPCS: 87081; 87880; 99283

== ENCOUNTER 2021-07-07 05:33 | Emergency (ER) | payer MEDICAID ==
[~2021-07-07] VITALS: Ht 182.9 cm; Wt 81.8 kg
[~2021-07-07 05:33] MED LIST changes: +AZIT500T9 PO
--- NOTE | 2021-07-07 05:54 | NUR ---
patient in the er with complaints of foot pain but also denies foot pain , patient is going on and on, patient has a flight of ideas , in bed resting comfortably, no apparent distress at this time
[2021-07-07] MEDS ORDERED: SULF1TAB49 PO (06:15)
[2021-07-07 06:30] VITALS: BP 129/80
== END 2021-07-07 06:32 | disposition home or self-care (01) ==
LOC: ER 05:34
DX: L84 Corns and callosities (principal); R46.0 Very low level of personal hygiene; J45.909 Unspecified asthma, uncomplicated; F12.90 Cannabis use, unspecified, uncomplicated; F15.90 Other stimulant use, unspecified, uncomplicated; Z59.00 Homelessness unspecified; Z87.440 Personal history of urinary (tract) infections; Z60.2 Problems related to living alone; Z72.89 Other problems related to lifestyle; Z88.1 Allergy status to other antibiotic agents; Z88.0 Allergy status to penicillin; Z79.2 Long term (current) use of antibiotics; Z79.899 Other long term (current) drug therapy
CPT/HCPCS: 99283

== ENCOUNTER 2021-07-17 17:05 | Emergency (ER) | payer MEDICAID ==
[~2021-07-17] VITALS: Ht 172.7 cm; Wt 90.9 kg
[2021-07-17] MEDS ORDERED: normal saline 1000ML IV soln IV ONE (17:25)
[2021-07-17 18:06] LABS: BASOPHILS % (AUTO) 0.2 % (0-1); EOSINOPHILS # (AUTO) 0.1 X10'3 (0-0.9); EOSINOPHILS % (AUTO) 1.1 % (0-6); HEMATOCRIT 34.6 % (42.0-52.0); HEMOGLOBIN 11.6 g/dl (14.0-17.9); LYMPHOCYTES # (AUTO) 1.2 X10'3 (1.1-4.8); LYMPHOCYTES % (AUTO) 10.8 % (21-51); MEAN CORPUSCULAR HEMOGLOBIN 28.4 PG (27.0-31.0); MEAN CORPUSCULAR HGB CONC 33.6 g/dL (33.0-36.5); MEAN CORPUSCULAR VOLUME 84.5 FL (78-98); MEAN PLATELET VOLUME 9.6 FL (7.4-10.4); MONOCYTES # (AUTO) 1.6 X10'3 (0-0.9); MONOCYTES % (AUTO) 14.6 % (2-12); NEUTROPHILS % (AUTO) 73.3 % (42-75); PLATELET COUNT 220 X10'3 (140-440); RED BLOOD COUNT 4.09 X10'6 (4.70-6.10); RED CELL DISTRIBUTION WIDTH 13.8 % (11.5-14.5); WHITE BLOOD COUNT 10.9 X10'3 (4.5-11.0)
[2021-07-17 18:26] LABS: ALANINE AMINOTRANSFERASE 69 U/L (12-78); ALBUMIN 3.2 G/DL (3.4-5.0); ALBUMIN/GLOBULIN RATIO 0.7 (1.1-1.5); ALKALINE PHOSPHATASE 82 IU/L (46-116); ANION GAP 14 (8-16); ASPARTATE AMINO TRANSFERASE 53 U/L (10-37); BILIRUBIN,TOTAL 0.9 MG/DL (0.1-1.0); BLOOD UREA NITROGEN 15 MG/DL (7-18); BUN/CREATININE RATIO 20.3 (5.4-32.0); CALCIUM 8.5 MG/DL (8.5-10.1); CHLORIDE 102 MMOL/L (99-107); CREATININE 0.74 MG/DL (0.60-1.10); GLUCOSE 101 MG/DL (70-104); MAGNESIUM 2.2 MG/DL (1.5-2.4); POTASSIUM 3.5 MMOL/L (3.5-5.1); SODIUM 139 MMOL/L (135-145); TOTAL CARBON DIOXIDE 23.2 MMOL/L (24-32); TOTAL PROTEIN 7.9 G/DL (6.4-8.2); eGFR > 90 ML/MIN
[2021-07-17] MEDS ORDERED: piperacillin/tazo 3.375gm/50ml 50 ML IV ONE (19:50)
--- NOTE | 2021-07-17 21:07 | NUR ---
VASCULAR PAGED AT [id number]
[2021-07-17] MEDS ORDERED: AMOX-117 PO (22:34)
[2021-07-17 22:41] VITALS: BP 114/72
== END 2021-07-17 23:33 | disposition home or self-care (01) ==
LOC: ER 17:06
DX: L03.115 Cellulitis of right lower limb (principal); F31.9 Bipolar disorder, unspecified; F12.10 Cannabis abuse, uncomplicated; F15.10 Other stimulant abuse, uncomplicated; Z59.00 Homelessness unspecified; J45.909 Unspecified asthma, uncomplicated; Z79.899 Other long term (current) drug therapy
CPT/HCPCS: 36415; 71045; 80053; 83605; 83735; 84145; 85025; 87040; 93971; 96365; 96366; 99285; J2543; J7030

== ENCOUNTER 2021-07-26 21:29 | Emergency (ER) | payer MEDICAID ==
[~2021-07-26] VITALS: Ht 180.3 cm; Wt 100.0 kg
[~2021-07-26 21:29] MED LIST changes: +AMOX-117 PO
[2021-07-27 00:38] VITALS: BP 86/44
[2021-07-27 01:15] LABS: BASOPHILS # (AUTO) 0.1 X10'3 (0-0.2); BASOPHILS % (AUTO) 0.8 % (0-1); EOSINOPHILS # (AUTO) 0.4 X10'3 (0-0.9); EOSINOPHILS % (AUTO) 5.4 % (0-6); HEMATOCRIT 34.5 % (42.0-52.0); LYMPHOCYTES % (AUTO) 39.3 % (21-51); MEAN CORPUSCULAR HEMOGLOBIN 29.3 PG (27.0-31.0); MEAN CORPUSCULAR HGB CONC 34.8 g/dL (33.0-36.5); MEAN CORPUSCULAR VOLUME 84.4 FL (78-98); MONOCYTES # (AUTO) 0.5 X10'3 (0-0.9); MONOCYTES % (AUTO) 7.1 % (2-12); NEUTROPHILS # (AUTO) 3.6 X10'3 (1.8-7.7); NEUTROPHILS % (AUTO) 47.4 % (42-75); PLATELET COUNT 348 X10'3 (140-440); RED BLOOD COUNT 4.09 X10'6 (4.70-6.10); RED CELL DISTRIBUTION WIDTH 14.1 % (11.5-14.5); WHITE BLOOD COUNT 7.6 X10'3 (4.5-11.0)
[2021-07-27 01:32] LABS: URINE AMPHETAMINE SCREEN NEGATIVE (Neg); URINE BARBITUATE SCREEN NEGATIVE (Neg); URINE BENZODIAZEPINES SCREEN NEGATIVE (Neg); URINE CANNABINOID SCREEN POSITIVE (Neg); URINE COCAINE SCREEN NEGATIVE (Neg); URINE METHADONE SCREEN NEGATIVE (Neg); URINE OPIATE SCREEN NEGATIVE (Neg); URINE PHENCYCLIDINE SCREEN NEGATIVE (Neg)
[2021-07-27 01:33] LABS: ALANINE AMINOTRANSFERASE 22 U/L (12-78); ALBUMIN 3.1 G/DL (3.4-5.0); ALBUMIN/GLOBULIN RATIO 0.7 (1.1-1.5); ALKALINE PHOSPHATASE 68 IU/L (46-116); ANION GAP 9 (8-16); ASPARTATE AMINO TRANSFERASE 13 U/L (10-37); BILIRUBIN,TOTAL 0.5 MG/DL (0.1-1.0); BLOOD UREA NITROGEN 12 MG/DL (7-18); BUN/CREATININE RATIO 17.9 (5.4-32.0); CALCIUM 8.6 MG/DL (8.5-10.1); CHLORIDE 102 MMOL/L (99-107); CREATININE 0.67 MG/DL (0.60-1.10); ETHANOL < 0.010 GM/DL (0.0-0.010); GLUCOSE 93 MG/DL (70-104); SODIUM 138 MMOL/L (135-145); TOTAL CARBON DIOXIDE 27.4 MMOL/L (24-32); TOTAL PROTEIN 7.6 G/DL (6.4-8.2); eGFR > 90 ML/MIN
[2021-09-04] MEDS ORDERED: DIVA250T4 PO ×2 (07:03)
[2021-09-04] MEDS ORDERED: HYDR-3686 PO ×2 (07:03)
[2021-09-04] MEDS ORDERED: TRAZ-251 PO ×2 (07:03)
[2021-09-04] MEDS ORDERED: HALO5TAB PO ×2 (07:03)
== END 2021-07-27 05:06 | disposition home or self-care (01) ==
LOC: ER 21:29
DX: Z13.89 Encounter for screening for other disorder (principal); M79.671 Pain in right foot; J45.909 Unspecified asthma, uncomplicated; F31.9 Bipolar disorder, unspecified; F20.9 Schizophrenia, unspecified; F12.90 Cannabis use, unspecified, uncomplicated; F15.90 Other stimulant use, unspecified, uncomplicated; Z60.2 Problems related to living alone; Z87.440 Personal history of urinary (tract) infections; Z72.89 Other problems related to lifestyle; Z59.00 Homelessness unspecified; Z79.2 Long term (current) use of antibiotics; Z79.899 Other long term (current) drug therapy
CPT/HCPCS: 36415; 80053; 80305; 80320; 85025; 99283

== ENCOUNTER 2021-08-15 12:23 | Emergency (ER) | payer MEDICAID ==
[~2021-08-15] VITALS: Ht 172.7 cm; Wt 90.9 kg
[~2021-08-15 12:23] MED LIST changes: -AMOX-117 PO
[2021-08-15 14:07] LABS: BASOPHILS # (AUTO) 0.1 X10'3 (0-0.2); BASOPHILS % (AUTO) 0.7 % (0-1); EOSINOPHILS # (AUTO) 0.3 X10'3 (0-0.9); EOSINOPHILS % (AUTO) 3.9 % (0-6); HEMOGLOBIN 12.7 g/dl (14.0-17.9); LYMPHOCYTES # (AUTO) 1.7 X10'3 (1.1-4.8); MEAN CORPUSCULAR HEMOGLOBIN 28.6 PG (27.0-31.0); MEAN CORPUSCULAR HGB CONC 33.5 g/dL (33.0-36.5); MEAN CORPUSCULAR VOLUME 85.4 FL (78-98); MEAN PLATELET VOLUME 9.2 FL (7.4-10.4); MONOCYTES % (AUTO) 12.8 % (2-12); NEUTROPHILS # (AUTO) 4.6 X10'3 (1.8-7.7); NEUTROPHILS % (AUTO) 60.6 % (42-75); PLATELET COUNT 193 X10'3 (140-440); RED BLOOD COUNT 4.45 X10'6 (4.70-6.10); RED CELL DISTRIBUTION WIDTH 15.4 % (11.5-14.5); WHITE BLOOD COUNT 7.5 X10'3 (4.5-11.0)
[2021-08-15 14:15] LABS: ALANINE AMINOTRANSFERASE 16 U/L (12-78); ALBUMIN 3.3 G/DL (3.4-5.0); ALBUMIN/GLOBULIN RATIO 0.9 (1.1-1.5); ALKALINE PHOSPHATASE 62 IU/L (46-116); ANION GAP 7 (8-16); ASPARTATE AMINO TRANSFERASE 17 U/L (10-37); BILIRUBIN,TOTAL 0.5 MG/DL (0.1-1.0); BLOOD UREA NITROGEN 15 MG/DL (7-18); BUN/CREATININE RATIO 18.1 (5.4-32.0); CALCIUM 7.9 MG/DL (8.5-10.1); CHLORIDE 104 MMOL/L (99-107); CREATININE 0.83 MG/DL (0.60-1.10); GLUCOSE 82 MG/DL (70-104); POTASSIUM 3.5 MMOL/L (3.5-5.1); SODIUM 138 MMOL/L (135-145); TOTAL CARBON DIOXIDE 27.1 MMOL/L (24-32); eGFR > 90 ML/MIN
[2021-08-15 14:24] LABS: ETHANOL < 0.010 GM/DL (0.0-0.010)
--- NOTE | 2021-08-15 15:56 | NUR ---
Recieved report from JACQUES Rhodes. Pt brought to unit from main ED. Pt is confused but cooperative. He states he has been on the streets since his mother and father left. He reports being on medications but does not know who his doctor is or what medications he is on. Patient gave verbal consent to call his mother. Victoria mother states he was in a rehab place on [address] and had a job and was doing good. She is currently in [place]. Per his mother he has a history of Bipolar and was getting his medicine from [facility] pharmacy.
[2021-08-15] MEDS ORDERED: LORazepam 1 MG tablet PO ONE (16:45)
[2021-08-15 16:48] LABS: URINE AMPHETAMINE SCREEN NEGATIVE (Neg); URINE BARBITUATE SCREEN NEGATIVE (Neg); URINE BENZODIAZEPINES SCREEN NEGATIVE (Neg); URINE CANNABINOID SCREEN POSITIVE (Neg); URINE COCAINE SCREEN NEGATIVE (Neg); URINE METHADONE SCREEN NEGATIVE (Neg); URINE OPIATE SCREEN NEGATIVE (Neg); URINE PHENCYCLIDINE SCREEN NEGATIVE (Neg)
--- NOTE | 2021-08-15 17:23 | NUR ---
Pt c/o hunger. Pt given two sandwiches, and two cartons of milk. Pt ate and drank all of them. Pt appears anxious and paranoid. He was given Ativan 2mg. Pt is now covered up and resting quietly on his bed.
--- NOTE | 2021-08-15 19:58 | NUR ---
Interview 1:1 at bedside. The patient is oriented to person only. He believes the year is 2020 and Guru Domínguez is the current President. The patient was not aware where he was. It was explained to the patient that he is in the hospital on a mental health hold. He exibits understanding. Patient denies a mental history, his chart states schizophrenia. The patient exhibits poverty of thought. His decision making process is poor. The patient describes audible hallucinations but states they are too far away to hear. He denies visual hallucinations. The patient is cooperative. His ADL's are fine as far as toileting. He did eat his dinner.
[2021-08-15] MEDS: valproic acid 250mg capsule PO SCH (20:11)
[2021-08-15] MEDS: haloperidol 5mg tablet PO SCH (20:12)
--- NOTE | 2021-08-15 21:19 | NUR ---
This patient is sleeping quietly in a low fowlers position. He occasionally snores. His color is good. No distress noted.
--- NOTE | 2021-08-15 22:55 | NUR ---
Patient is sleeping quietly in a supine position. In view from nurses station.
--- NOTE | 2021-08-15 23:53 | NUR ---
faxed packet to [facility]
--- NOTE | 2021-08-16 00:31 | NUR ---
Report given to Letha MARCIAL. They still require a UA and a foot assessment. The UA was ordered. When this patient awakens the feet will be evaluated and a urine collected.
--- NOTE | 2021-08-16 02:09 | NUR ---
Patient awoke and requested juice. At this time his feet were evaluated. No skin leisons were noted.
--- NOTE | 2021-08-16 04:09 | NUR ---
Patient is sleeping on his left side. No distress noted.
--- NOTE | 2021-08-16 05:14 | NUR ---
Patient is sleeping on his right side in bed. No distress.
[2021-08-16 06:04] LABS: CLARITY,URINE CLOUDY (Clear); GLUCOSE, URINE NEGATIVE (Neg); KETONES,URINE NEGATIVE (Neg); LEUKOCYTE ESTERASE ,URINE NEGATIVE (Neg); NITRITES, URINE NEGATIVE (Neg); OCCULT BLOOD,URINE NEGATIVE (Neg); PROTEIN,URINE NEGATIVE (Neg); UROBILINOGEN,URINE 0.2 E.U/dL (0.2-1.0)
[2021-08-16 06:08] LABS: COLOR,URINE STRAW (Yellow); UA COLLECTION TYPE CLN CATCH MIDSTREAM
[2021-08-16 06:14] LABS: AMORPHOUS URATES 3+; BACTERIA,URINE NONE SEEN /HPF (Neg); MUCUS STRANDS NONE SEEN /LPF (Neg); RBC,URINE NONE SEEN /HPF (0-2); SQUAMOUS EPITHELIAL CELL,UR NONE SEEN /LPF (FEW); WBC,URINE NONE SEEN /HPF (0-4)
--- NOTE | 2021-08-16 06:40 | NUR ---
Pt resting, effortless respirations observed.
[2021-08-16] MEDS: valproic acid 250mg capsule PO SCH ×2 (08:47→20:57)
[2021-08-16] MEDS: haloperidol 5mg tablet PO SCH ×2 (08:47→20:57)
--- NOTE | 2021-08-16 09:30 | NUR ---
Pt remains calm and cooperative. Pt gets up and paces, asks for items at nurses station freqently and goes back to room.
--- NOTE | 2021-08-16 10:30 | NUR ---
Pt given snack as pt requesting something to eat.
--- NOTE | 2021-08-16 11:16 | NUR ---
JACQUES Yusuf from Behavior[facility] at bedside for 1:1 interview. Patient is calm and cooperative, good eye contact. Randomply requesting something for "poison oak on [my] genitals." When asked specifically what he needed, requesting a hot shower. Patient was told this was not an option currently and was given purple body wipes. Patient appears greatful for this.
--- NOTE | 2021-08-16 11:27 | NUR ---
Patient is at counter requesting a cough drop. When asked why he wants one as he has not been coughing, he states it may be due to his seasonal allergies. Asked if I wanted some doritos.
--- NOTE | 2021-08-16 12:30 | NUR ---
Pt sat at bedside and ate lunch tray.
--- NOTE | 2021-08-16 14:34 | NUR ---
Pt currently resting with eyes closed on bed, effortless respirations observed.
--- NOTE | 2021-08-16 17:15 | NUR ---
Pt reminded of when dinner trays arrive. Pt ambulated to bathroom and now back in bed laying quietly.
--- NOTE | 2021-08-16 19:00 | NUR ---
Assumed pt care, pt is currently resting with no needs at this time.
--- NOTE | 2021-08-16 20:53 | NUR ---
Nurse to nurse with JACQUES TURNER at [facility] in [facility].
--- NOTE | 2021-08-16 21:14 | NUR ---
Pt accepted at [facility] in [place] tomorrow ETA 8-9AM. Dr Hayward,
--- NOTE | 2021-08-16 22:56 | NUR ---
Pt appears to be sleeping.
--- NOTE | 2021-08-17 01:53 | NUR ---
Pt appears to be sleeping.
--- NOTE | 2021-08-17 04:12 | NUR ---
Pt up to the BR, back to bed no needs at this time.
[2021-08-17 05:23] VITALS: BP 121/69
--- NOTE | 2021-08-17 06:51 | NUR ---
Received Pt in bed resting w/o distress at beginning of shift.
[2021-08-17] MEDS ORDERED: acetaminophen 325mg tablet PO ONE (07:20)
--- NOTE | 2021-08-17 08:00 | NUR ---
Pt awake in bed. Pt used bathroom earlier and attempted to call his mom.
[2021-08-17] MEDS: haloperidol 5mg tablet PO SCH (08:35)
[2021-08-17] MEDS: valproic acid 250mg capsule PO SCH (08:35)
--- NOTE | 2021-08-17 08:43 | NUR ---
Pt took AM meds and changed into own clothes. Belongings given to [facility] boat driver and Pt left with him to be transported to [facility]. Pt calm and cooperative upon leaving.
== END 2021-08-17 09:00 ==
LOC: ER 12:24
DX: F20.9 Schizophrenia, unspecified (principal); Z20.822 Contact with and (suspected) exposure to COVID-19; R41.82 Altered mental status, unspecified; J45.909 Unspecified asthma, uncomplicated; F31.9 Bipolar disorder, unspecified; Z87.440 Personal history of urinary (tract) infections; F12.90 Cannabis use, unspecified, uncomplicated; F15.90 Other stimulant use, unspecified, uncomplicated; Z59.00 Homelessness unspecified; Z79.899 Other long term (current) drug therapy; Z79.2 Long term (current) use of antibiotics
CPT/HCPCS: 36415; 80053; 80305; 80320; 81001; 84443; 85025; 87635; 99285; C9803

== ENCOUNTER 2021-08-22 15:53 | Inpatient (IN) | payer MEDICAID ==
[~2021-08-22] VITALS: Ht 180.3 cm; Wt 98.4 kg
[2021-08-22 16:34] LABS: EOSINOPHILS # (AUTO) 0.2 X10'3 (0-0.9); HEMOGLOBIN 12.3 g/dl (14.0-17.9); MEAN PLATELET VOLUME 8.8 FL (7.4-10.4)
[2021-08-22 16:36] LABS: BASOPHILS # (AUTO) 0.1 X10'3 (0-0.2); BASOPHILS % (AUTO) 1.1 % (0-1); EOSINOPHILS % (AUTO) 2.7 % (0-6); HEMATOCRIT 37.2 % (42.0-52.0); LYMPHOCYTES # (AUTO) 2.1 X10'3 (1.1-4.8); LYMPHOCYTES % (AUTO) 30.7 % (21-51); MEAN CORPUSCULAR HEMOGLOBIN 28.2 PG (27.0-31.0); MEAN CORPUSCULAR HGB CONC 33.1 g/dL (33.0-36.5); MONOCYTES # (AUTO) 0.5 X10'3 (0-0.9); MONOCYTES % (AUTO) 6.8 % (2-12); NEUTROPHILS # (AUTO) 4.1 X10'3 (1.8-7.7); NEUTROPHILS % (AUTO) 58.7 % (42-75); PLATELET COUNT 197 X10'3 (140-440); RED BLOOD COUNT 4.37 X10'6 (4.70-6.10); RED CELL DISTRIBUTION WIDTH 15.5 % (11.5-14.5)
[2021-08-22] MEDS ORDERED: LORazepam 2 mg/ml vial IM ONE (16:45)
[2021-08-22] MEDS ORDERED: diphenhydrAMINE 50 mg/ml inj IM ONE (16:45)
[2021-08-22] MEDS ORDERED: haloperidol lactate 5mg/ml inj IM ONE (16:45)
[2021-08-22 16:52] LABS: ALANINE AMINOTRANSFERASE 44 U/L (12-78); ALBUMIN 3.3 G/DL (3.4-5.0); ALBUMIN/GLOBULIN RATIO 0.9 (1.1-1.5); ALKALINE PHOSPHATASE 69 IU/L (46-116); ANION GAP 8 (8-16); ASPARTATE AMINO TRANSFERASE 16 U/L (10-37); BILIRUBIN,TOTAL 0.5 MG/DL (0.1-1.0); BLOOD UREA NITROGEN 13 MG/DL (7-18); BUN/CREATININE RATIO 18.8 (5.4-32.0); CALCIUM 8.1 MG/DL (8.5-10.1); CHLORIDE 102 MMOL/L (99-107); CREATININE 0.69 MG/DL (0.60-1.10); GLUCOSE 124 MG/DL (70-104); POTASSIUM 3.5 MMOL/L (3.5-5.1); SODIUM 137 MMOL/L (135-145); TOTAL CARBON DIOXIDE 27.3 MMOL/L (24-32); TOTAL PROTEIN 7.1 G/DL (6.4-8.2); eGFR > 90 ML/MIN
[2021-08-22 17:00] LABS: ETHANOL < 0.010 GM/DL (0.0-0.010)
--- NOTE | 2021-08-22 17:10 | NUR ---
Patient became agitated, cursing and threatening staff, attempted to leave; patient assisted back to room by ED staff, placed in restraints, and IM medication administered.
--- NOTE | 2021-08-22 18:40 | NUR ---
Pt pink, no acute/resp distress. Released from restraints. Pt verbally agreed to comply with requests from staff. Distal cap refill <2 seconds on all hands and feet. Bed in lowest position, wheels locked, rail 2/2 up. Pt in room directly across from charge desk.
--- NOTE | 2021-08-22 19:51 | NUR ---
Pt pink, no acute/resp distress. Released from restraints. Bed in lowest position, wheels locked, rail 2/2 up. Pt in room directly across from charge desk.
--- NOTE | 2021-08-22 20:47 | NUR ---
Pt pink, no acute/resp distress. Released from restraints. Bed in lowest position, wheels locked, rail 2/2 up. Pt in room directly across from charge desk. Will continue to monitor for acute changes and needs. Pt laying supine, able to reposition self PRN.
--- NOTE | 2021-08-22 21:21 | NUR ---
Pt pink, no acute/resp distress. Bed in lowest position, wheels locked, rail 2/2 up. Will continue to monitor for acute changes and needs. Pt laying supine, able to reposition self PRN. Will continue to monitor for acute changes and needs.
--- NOTE | 2021-08-22 23:33 | NUR ---
Pt pink, no acute/resp distress. Bed in lowest position, wheels locked, rail 2/2 up. Will continue to monitor for acute changes and needs. Pt laying left, able to reposition self PRN. Will continue to monitor for acute changes and needs.
--- NOTE | 2021-08-23 02:42 | NUR ---
Pt pink, no acute/resp distress. Bed in lowest position, wheels locked, rail 2/2 up. Will continue to monitor for acute changes and needs. Pt laying right, able to reposition self PRN. Will continue to monitor for acute changes and needs.
--- NOTE | 2021-08-23 06:06 | NUR ---
Pt pink, no acute/resp distress. Bed in lowest position, wheels locked, rail 2/2 up. Will continue to monitor for acute changes and needs. Pt laying supine, able to reposition self PRN. Will continue to monitor for acute changes and needs. Handoff report to dayshift RN
[2021-08-23] MEDS ORDERED: haloperidol 5mg tablet PO ONE (06:45)
[2021-08-23] MEDS ORDERED: divalproex 250mg tablet, delayed-release PO ONE (06:45)
[2021-08-23] MEDS ORDERED: LORazepam 1 MG tablet PO PRN ×2 (06:45→17:45)
--- NOTE | 2021-08-23 06:53 | NUR ---
PT FOUND WATCHING YOU TUBE IN ROOM. HOME MEDS GIVEN WITH WATER. PT ASKED TO TURN [employer] OFF AND RETURN TO BED. PT AGREEABLE AND RETURNED TO BED. INFORMED THAT BREAKFAST WOULD BE COMING SOON.
[2021-08-23 10:52] LABS: CLARITY,URINE SLIGHTLY CLOUDY (Clear); COLOR,URINE YELLOW (Yellow); GLUCOSE, URINE NEGATIVE (Neg); KETONES,URINE TRACE mg/dl (Neg); LEUKOCYTE ESTERASE ,URINE NEGATIVE (Neg); NITRITES, URINE NEGATIVE (Neg); OCCULT BLOOD,URINE NEGATIVE (Neg); PROTEIN,URINE NEGATIVE (Neg); UROBILINOGEN,URINE 0.2 E.U/dL (0.2-1.0)
[2021-08-23 10:58] LABS: UA COLLECTION TYPE VOIDED
[2021-08-23 11:03] LABS: AMORPHOUS URATES 2+; BACTERIA,URINE FEW /HPF (Neg); MUCUS STRANDS MANY /LPF (Neg); RBC,URINE NONE SEEN /HPF (0-2); SQUAMOUS EPITHELIAL CELL,UR NONE SEEN /LPF (FEW); WBC,URINE 0-4 /HPF (0-4)
[2021-08-23 11:05] LABS: URINE AMPHETAMINE SCREEN NEGATIVE (Neg); URINE BARBITUATE SCREEN NEGATIVE (Neg); URINE BENZODIAZEPINES SCREEN NEGATIVE (Neg); URINE CANNABINOID SCREEN NEGATIVE (Neg); URINE COCAINE SCREEN NEGATIVE (Neg); URINE METHADONE SCREEN NEGATIVE (Neg); URINE OPIATE SCREEN NEGATIVE (Neg); URINE PHENCYCLIDINE SCREEN NEGATIVE (Neg)
--- NOTE | 2021-08-23 16:50 | NUR ---
bedside report given to neil hartman. security and [facility] nurse at bedside to take pt up.
[2021-08-23] MEDS ORDERED: mag hydrox/Alum hydrox/simeth 30ml oral suspension PO PRN (17:15)
[2021-08-23] MEDS ORDERED: acetaminophen 325mg tablet PO PRN ×2 (17:15)
[2021-08-23] MEDS ORDERED: loperamide 2mg capsule PO PRN (17:15)
[2021-08-23] MEDS ORDERED: NICOTINE POLACRILEX 2 MG LOZENGE BC PRN (17:15)
[2021-08-23] MEDS ORDERED: magnesium hydroxide 30ml (MOM) UD suspension PO PRN (17:15)
--- NOTE | 2021-08-23 17:33 | NUR ---
Admission note: Pt admitted today on 5150 from the ER for gravely disabled at 1653. Pt presents with confusion and disorganized thinking, pt is unable to come up with a plan for fdc or food. Pt has history of schizoaffective disorder.
[2021-08-23 17:45] VITALS: BP 123/81
[2021-08-23 20:00] VITALS: BP 115/64
[2021-08-23] MEDS: traZODone 50mg tablet PO PRN (21:34)
[2021-08-24] MEDS: traZODone 50mg tablet PO PRN ×2 (02:53→21:25)
--- NOTE | 2021-08-24 04:03 | NUR ---
NURSING PROGRESS NOTE Legal Status: 5150 Why are they here: Pt presents with confusion and disorganized thinking, pt is unable to come up with a plan for fdc or food. Pt has history of schizoaffective disorder. What Happened This Shift: Pt asleep at shift change. When pt wakes up he is cooperative with vital signs, and asks for a snack which is given to him. Admission questions completed, pt denies SI/HI/AH/VH at this time. Pt is not very talkative, but is visible on the unit and sits in the community room watching TV. Pt utilizes PRN trazodone for sleep with good effect. PT does wake up once throughout the night around 0300 thinking he could shower. Staff reminds him it is 0300 and pt goes back to bed. discharge: Patient in need of crisis interruption and stabilization with medication management and monitoring in a safe and therapeutic environment until stable.
[2021-08-24 08:00] VITALS: BP 125/77
[2021-08-24] MEDS ORDERED: nicotine 21mg patch - 24 hr TD SCH (08:00)
[2021-08-24 09:15] LABS: CHOL/HDL RATIO 3.2 (0.00-4.99); CHOLESTEROL 114 MG/DL (0-200); HDL CHOLESTEROL 36 MG/DL (35-60); LDL CHOLESTEROL 67 MG/DL (50-100); TRIGLYCERIDES 58 MG/DL (20-135)
[2021-08-24 09:18] LABS: HEMOGLOBIN A1C 5.2 % (4.5-6.2)
[2021-08-24] MEDS ORDERED: haloperidol 5mg tablet PO PRN (14:30)
--- NOTE | 2021-08-24 15:43 | NUR ---
NURSING PROGRESS NOTE Legal Status: 5150 Client on involuntary status for GD Report received from RN with use of SBAR Why are they here: Pt admitted on a 5150 from the ER for gravely disabled. Pt presents with confusion and disorganized thinking, pt is unable to come up with a plan for mcfp or food. Pt has history of schizoaffective disorder. Assessment What Happened This Shift: Received pt. in bed resting, 1:1 done at bedside. Pt. cooperative with assessment and medication administration, refused nicotine patch. Pt. requested PRN Ativan for anxiety. Pt. seen walking the halls and resting in his room on and off throughout the shift. S/I, H/I: Denies A/VH: Denies Sleep: Napped ADL's: Independent Group attendance: No groups today Were meds taken: Yes Any med S/E: None Mental Status Exam Appearance: Dressed in green scrubs, continues to have to be told to pull his pants up due to bending over and his behind showing. Eye contact: Good Behavior: Cooperative Speech: Coherent Mood: Euthymic Affect: congruent Thought process: Withdrawn Thought Content: Meeting needs Cognition: A&O X3 Insight: Fair Judgment: Fair Interventions PRN's used: Ativan Therapeutic interventions: Maintained a safe and supportive environment, provided clear and simple communication, provided active listening and positive encouragement, and maintained Q 15min safety checks. Restraints/seclusion/emergency medication: N/A Justification of Continued Inpatient Treatment: Patient in need of crisis interruption and stabilization with medication management and monitoring in a safe and therapeutic environment until stable.
[2021-08-24 19:45] VITALS: BP 101/55
[2021-08-24] MEDS ORDERED: divalproex sodium 500mg tablet.DR PO SCH (20:00)
[2021-08-24] MEDS ORDERED: divalproex 250mg tablet, delayed-release PO ONE (20:57)
[2021-08-24] MEDS: haloperidol 5mg tablet PO SCH (21:25)
--- NOTE | 2021-08-25 01:28 | NUR ---
NURSING PROGRESS NOTE Legal Status: 5150 Why are they here: Pt presents with confusion and disorganized thinking, pt is unable to come up with a plan for half-way or food. Pt has history of schizoaffective disorder. What Happened This Shift: Pt is quiet and cooperative. He stays in his room or sits in the community room eating snack. He is polite with staff members and is not seen interacting with other patients. He denies SI/HI/AH/VH at this time. He is not observed responding to internal stimuli and does not make any delusional statements. Pt started on Depakote and Haldol HS, RN goes over medication education with pt, pt verbalizes understanding and takes the medication without issue. Pt also requests PRN trazodone which is given to him with good effect. discharge: Patient in need of crisis interruption and stabilization with medication management and monitoring in a safe and therapeutic environment until stable.
[2021-08-25 08:00] VITALS: BP 131/74
[2021-08-25] MEDS: divalproex 250mg tablet, delayed-release PO SCH ×2 (08:32→20:31)
[2021-08-25] MEDS: haloperidol 5mg tablet PO SCH ×2 (08:37→20:32)
--- NOTE | 2021-08-25 15:25 | NUR ---
NURSING PROGRESS NOTE: YUE Legal Status: 5150 Expires 08/26 @ 9698 Client on involuntary status for GD Report received from RACHAEL Clark with use of SBAR Why are they here: Pt admitted on a 5150 from the ER for gravely disabled. Pt presents with confusion and disorganized thinking, pt is unable to come up with a plan for intermediate or food. Pt has history of schizoaffective disorder. Assessment What happened this shift: Received patient sleeping at shift change, no distress noted. Pt woke prior to breakfast, without issue. Pt was compliant with care and medication. When asked about SI/HI, pt stated I am just here to get better. Pt endorsed auditory hallucinations, but would not elaborate. Pt hung out in the rec room most of the morning. Minimally engaged in conversation. No behaviors noted. Will continue to monitor. Pt MRSA +. Educated patient on the importance of hand hygiene. Pt verbalized understanding. S/I, H/I: Denies both. A/VH: Denies both. Sleep: 7.75 hours per sleep assessment. Intermittent naps ADL's: Independent. Pt showered today. Group attendance: No groups today Were meds taken: Yes, without issue Any med S/E: None reported or observed. Mental Status Exam Appearance: Scruffy lawson, slightly disheveled. Dressed in green unit scrubs. Eye contact: Good Behavior: Cooperative, quiet, isolates to self. Speech: Clear, minimal, normal rate/rhythm. Mood: Euthymic Affect: Congruent Thought process: Linear, but not forthcoming. Thought Content: Meeting needs Cognition: A&O X3 Insight: Fair Judgment: Fair Interventions PRN's used: None Therapeutic interventions: Maintained a safe and supportive environment, provided clear and simple communication, provided active listening and positive encouragement, and maintained Q 15min safety checks. Restraints/seclusion/emergency medication: N/A Justification of Continued Inpatient Treatment: Patient in need of crisis interruption and stabilization with medication management and monitoring in a safe and therapeutic environment until stable.
[2021-08-25 20:27] VITALS: BP 107/66
[2021-08-25] MEDS: traZODone 50mg tablet PO PRN (20:32)
--- NOTE | 2021-08-26 04:27 | NUR ---
Nursing Progress Note: Legal Status: 5150 Why are they here: Pt presents with confusion and disorganized thinking, pt is unable to come up with a plan for senior living or food. Pt has history of schizoaffective disorder. What Happened This Shift: Patient sitting in community room at shift change. 1:1 at bedside. He states that he's having a real hard time being homeless. Patient is withdrawn and doesn't offer information. He denies all MH symptoms, but admits to . Patient isolates to self, and spends the evening in his room napping. He was compliant with medications after being educated about them. Patient requested Trazodone for sleep, and it was effective AEB him sleeping all night. Discharge: Patient in need of crisis interruption and stabilization with medication management and monitoring in a safe and therapeutic environment until stable.
[2021-08-26] MEDS: divalproex 250mg tablet, delayed-release PO SCH ×2 (07:05→20:19)
[2021-08-26] MEDS: haloperidol 5mg tablet PO SCH ×2 (07:05→20:20)
[2021-08-26 08:00] VITALS: BP 104/56
--- NOTE | 2021-08-26 09:49 | NUR ---
CM- Pre-DCP Presenting Issues: Pt's 5150 expires today @ 4:53 PM, pt is homeless and needs dcp support. Interventions: Clinician met w/pt, introduced self, provided informed consent including limits of confidentiality. Pt expressed desires to d/c. Clinician engaged pt in dcp activities, pt signed JOHN for clinician to contact [employer] & [facility] to provide linkages to additional community resources upon d/c for pt upon d/c. Pt reports that he gets 900/mo from SSI, declined offer for a referral for payee services, Pt feels that he can self amanage his funds at this time and that he now has $$ in his account as he gets his SSI check on the first of the month. Clinician had t/c with pt's [facility] teamt clinician- Allen [phone](office)/ [phone] (mobile), per t/c [facility] team had provided referral to [facility] and requesting hospital to contact pt's PO to discuss possibility of [place] transitional living. Clinician had t/c with Collette/pt's PO- [phone], left requesting rt p/c to discuss retirement options. Plan: Clinician will continue to engage [facility] & probation in dcp activities. Sully Perkins LCSW Addendum: 08/26/21 at 0959 by Sully Perkins SS Amended: Links added.
--- NOTE | 2021-08-26 14:02 | NUR ---
CM- Linkages Presenting Issues: Pt's admitted to [facility] due to GD concerns as pt unable to articulate his plan for meeting his daily needs for survival. Interventions: Clinician received t/c from Collette [place], per t/c [facility] had called different sober living facilities and none had any opening at this time. Collette also informed clinician that [facility] will interview pt tomorrow, clinician confirmed [facility] interview w/[facility] DCP. Plan: Clinician will continue to monitor and provide dcp support as needed. Sully Perkins LCSW Addendum: 08/26/21 at 1445 by Sully Perkins SS Amended: Links added.
--- NOTE | 2021-08-26 16:30 | NUR ---
NURSING PROGRESS NOTE: YUE Legal Status: 5150 Expires 08/26 @ 2780 Client on involuntary status for GD Report received from RN with use of SBAR Why are they here: Pt admitted on a 5150 from the ER for gravely disabled. Pt presents with confusion and disorganized thinking, pt is unable to come up with a plan for fdc or food. Pt has history of schizoaffective disorder. Assessment What happened this shift: Patient was sleeping in bed at start of shift. I approached him for morning medication administration, was compliant and pleasant. Patient goes to community room for meals and usually goes back to his room and naps. He said he had a BM this morning. Does not have any additional requests. Over all pleasant and compliant. Pt MRSA +. Educated patient on the importance of hand hygiene. Pt verbalized understanding. S/I, H/I: Denies both. A/VH: Denies both. Sleep: 8 hours per retail shift supervisor report. Intermittent naps ADL's: Independent. Group attendance: No Were meds taken: Yes, without issue Any med S/E: None reported or observed. Mental Status Exam Appearance: Scruffy lawson, slightly disheveled. Dressed in green unit scrubs. Eye contact: Good Behavior: Cooperative, quiet, isolates to self. Speech: Clear, minimal, normal rate/rhythm. Mood: Euthymic Affect: Congruent Thought process: Linear, but not forthcoming. Thought Content: Meeting needs Cognition: A&O X3 Insight: Fair Judgment: Fair Interventions PRN's used: None Therapeutic interventions: Maintained a safe and supportive environment, provided clear and simple communication, provided active listening and positive encouragement, and maintained Q 15min safety checks. Restraints/seclusion/emergency medication: N/A Justification of Continued Inpatient Treatment: Patient in need of crisis interruption and stabilization with medication management and monitoring in a safe and therapeutic environment until stable.
[2021-08-26 20:00] VITALS: BP 118/56
[2021-08-26] MEDS: traZODone 50mg tablet PO PRN (20:21)
--- NOTE | 2021-08-27 03:58 | NUR ---
Nursing Progress Note: Legal Status: 5150 Why are they here: Pt presents with confusion and disorganized thinking, pt is unable to come up with a plan for retirement or food. Pt has history of schizoaffective disorder. What Happened This Shift: Patient seen at bedside for 1:1. He was lying there awake. Patient is a little irritable. Asked him about MH symptoms, but he denied them all. I asked no depression? The patient pondered it for a couple moments, then finally said no. He isolated to his room tonight, but came out for snack time and HS med pass. He requested Trazodone for sleep that was effective about a half hour later as he fell asleep. Discharge: Patient in need of crisis interruption and stabilization with medication management and monitoring in a safe and therapeutic environment until stable.
--- NOTE | 2021-08-27 07:07 | NUR ---
Initial: Pt admitted w/ schizophrenia per EMR. Currently on Regular diet w/ 100% intake of meals and some snacks per documentation. [facility] 08/26 w/ PRN bowel care available. No nutrition intervention implemented at this time, will continue to monitor. Recs: 1. Continue Regular diet as tolerated 2. Bowel care PRN 3. Weekly wts Addendum: 08/27/21 at [address] Amended: Links added.
[2021-08-27 07:37] VITALS: BP 118/52
[2021-08-27] MEDS: haloperidol 5mg tablet PO SCH ×2 (08:05→20:15)
[2021-08-27] MEDS: divalproex 250mg tablet, delayed-release PO SCH ×2 (08:06→20:15)
--- NOTE | 2021-08-27 17:38 | NUR ---
NURSING PROGRESS NOTE: YUE Legal Status: Voluntary Client on involuntary status for GD Report received from RACHAEL Garcia with use of SBAR Why are they here: Pt admitted on a 5150 from the ER for gravely disabled. Pt presents with confusion and disorganized thinking, pt is unable to come up with a plan for mcfp or food. Pt has history of schizoaffective disorder. Assessment Patient received sleeping in his room at change of shift with no s/s of distress. He awoke to join in the community room for breakfast with peers. Patient was receptive to scheduled medication and 1:1 assessment. He retreated back to his room immediately after breakfast. Patient presents as guarded and self-isolative most of the day. He does not engage in conversation and responds minimally to direct questions. Patient declined to go to group therapy today despite encouragement. He denies SI/HI, AH or VH. Does not appear to be responding to internal stimuli. Patient is noted sleeping in his room the majority of the day aside from snack and meal times. S/I, H/I: Denies both. A/VH: Denies both. Sleep: Refer to sleep assessment. Pt napped intermittently throughout this shift. ADL's: Independent Group attendance: No- declined Were meds taken: Yes Any med S/E: None reported or observed. Mental Status Exam Appearance: Scruffy lawson, slightly disheveled. Dressed in green unit scrubs. Eye contact: Good Behavior: Cooperative, quiet, isolates to self. Speech: Clear, minimal, normal rate/rhythm. Mood: Euthymic Affect: Congruent Thought process: Linear, but not forthcoming. Thought Content: Meeting needs. Unwilling to engage in conversation. Cognition: A&O X3 Insight: Fair Judgment: Fair Interventions PRN's used: None Therapeutic interventions: Maintained a safe and supportive environment, provided clear and simple communication, provided active listening and positive encouragement, and maintained Q 15min safety checks. Restraints/seclusion/emergency medication: N/A Justification of Continued Inpatient Treatment: Patient in need of crisis interruption and stabilization with medication management and monitoring in a safe and therapeutic environment until stable.
[2021-08-27 20:00] VITALS: BP 113/56
[2021-08-27] MEDS: traZODone 50mg tablet PO PRN (20:15)
--- NOTE | 2021-08-27 23:46 | NUR ---
Nursing Progress Note: Legal Status: 5150 Why are they here: Pt presents with confusion and disorganized thinking, pt is unable to come up with a plan for correction or food. Pt has history of schizoaffective disorder. What Happened This Shift: Patient was napping at shift change. 1:1 at bedside. He reports that he thinks his interview with [facility] went well. Patient continues to give little information and gets irritable if he feels pushed too far. He continues to deny all MH symptoms. None were observed. Patient isolates in his room for the most part, but comes out for snacks and meals. He was compliant with medications, then went to bed. Discharge: Patient in need of crisis interruption and stabilization with medication management and monitoring in a safe and therapeutic environment until stable.
[2021-08-28 07:25] VITALS: BP 98/57
[2021-08-28] MEDS: hydrOXYzine 25 MG tablet PO PRN (07:44)
[2021-08-28] MEDS: divalproex 250mg tablet, delayed-release PO SCH ×2 (07:44→20:25)
[2021-08-28] MEDS: haloperidol 5mg tablet PO SCH ×2 (07:44→20:25)
--- NOTE | 2021-08-28 09:32 | NUR ---
CM-Linkages Presenting Issues: Pt's signed Vol to allow SS & community-based support network to link him to skilled nursing resources. Interventions: [facility] had declined pt's request for services. Clinician had t/c w/pt's [facility] STAR clinician- Allen @ [phone] (M) and engaged him in linkages activities. Per t/c clinician suggested that [facility] team reach out to [place] [facility] and see if pt can d/c there until [facility] & probation can find a SLE bed for him. Plan: Clinician will continue to engage pt & community support sxs in [facility] activities. Sully Perkins LCSW Addendum: 08/28/21 at 0942 by Sully Perkins SS Amended: Links added.
--- NOTE | 2021-08-28 13:42 | NUR ---
NURSING PROGRESS NOTE: Legal Status: Voluntary Report received from RACHAEL Garcia with use of SBAR Why are they here: Pt admitted on a 5150 from the ER for gravely disabled. Pt presents with confusion and disorganized thinking, pt is unable to come up with a plan for nursing home or food. Pt has history of schizoaffective disorder. Assessment: Observed pt resting on his bed at start of shift. He appears to be asleep. RR even and unlabored. Pt up for breakfast then immediately returned to his room and got on his bed. Pt took his medications as prescribed along with PRN Atarax. Pt reports positive response with the Atarax. Pt is hesitant to engage in conversation during the 1:1 assessment. He responds minimally to direct questions. Patient isolates to his room most of the day.i S/I, H/I: Denies A/VH: Denies Sleep: Pt observed sleeping most of the day ADL's: Independent Group attendance: No Were Meds taken: Yes Any med S/E: None reported or observed. Mental Status Exam Appearance: Young disheveled male dressed in green unit scrubs. Eye contact: Fair Behavior: Cooperative, quiet, isolates to self. Speech: Clear, minimal, normal rate/rhythm. Mood: Euthymic Affect: Congruent Thought process: Linear, does not engage or initiate conversation Thought Content: Meeting needs. Cognition: A&O X3 Insight: Fair Judgment: Fair Interventions PRN's used: None Therapeutic interventions: Provided 1:1 communication, medication administration/education/monitoring, provided clear and simple communication, positive encouragement, and maintained Q 15min safety checks. Restraints/seclusion/emergency medication: N/A Justification of Continued Inpatient Treatment: Patient in need of crisis interruption and stabilization with medication management and monitoring in a safe and therapeutic environment until stable.
[2021-08-28 19:53] VITALS: BP 115/48
[2021-08-28] MEDS: traZODone 50mg tablet PO PRN (20:26)
--- NOTE | 2021-08-29 05:18 | NUR ---
NURSING PROGRESS NOTE Legal Status:vol Why are they here: Pt presents with confusion and disorganized thinking, pt is unable to come up with a plan for alf or food. Pt has history of schizoaffective disorder. What Happened This Shift: Pt isolates to his room the entirety of the shift. He denies SI/HI/AH/VH at this time. He is not observed responding to internal stimuli and does not make any delusional statements.Pt is medication compliant. Pt also requests PRN trazodone which is given to him with good effect. discharge: Patient in need of crisis interruption and stabilization with medication management and monitoring in a safe and therapeutic environment until stable.
[2021-08-29 08:00] VITALS: BP 126/63
[2021-08-29] MEDS: divalproex 250mg tablet, delayed-release PO SCH ×2 (08:04→20:21)
[2021-08-29] MEDS: haloperidol 5mg tablet PO SCH ×2 (08:04→20:21)
--- NOTE | 2021-08-29 16:48 | NUR ---
NURSING PROGRESS NOTE: Legal Status: Voluntary Report received from RACHAEL Garcia with use of SBAR Why are they here: Pt presents with confusion and disorganized thinking, pt is unable to come up with a plan for fdc or food. Assessment: Pt has spent most of the day in his bed sleeping. He has been up for meals and snacks. He was observed once walking in the hallways. Presents with a flat affect. Responds to open ended questions only. Appears anxious, later in the day, pacing around but will not take any Atarax at this time. S/I, H/I: Denies A/VH: Denies Sleep: Pt observed sleeping most of the day ADL's: Independent Group attendance: No Were Meds taken: Yes Any med S/E: None reported or observed. Mental Status Exam Appearance: Disheveled younger appearing male dressed in green unit scrubs. Eye contact: Fair Behavior: Cooperative, quiet, isolates to self. Speech: Clear, minimal, normal rate/rhythm. Mood: Euthymic Affect: Congruent Thought process: Linear, does not engage or initiate conversation Thought Content: Meeting needs. Cognition: A&O X3 Insight: Fair Judgment: Fair Interventions PRN's used: None Therapeutic interventions: Provided 1:1 assessment with therapeutic communication, medication administration/education/monitoring, provided clear and simple communication, positive encouragement, and maintained Q 15min safety checks. Restraints/seclusion/emergency medication: N/A Justification of Continued Inpatient Treatment: Patient in need of crisis interruption and stabilization with medication management and monitoring in a safe and therapeutic environment until stable.
[2021-08-29 20:00] VITALS: BP 118/58
[2021-08-29] MEDS: traZODone 50mg tablet PO PRN (20:23)
--- NOTE | 2021-08-30 01:53 | NUR ---
NURSING PROGRESS NOTE Legal Status:vol Why are they here: Pt presents with confusion and disorganized thinking, pt is unable to come up with a plan for prison or food. Pt has history of schizoaffective disorder. What Happened This Shift: Pt continues to isolate in his room and is not seen socializing with any peers. He only approaches staff when he asks for something. PT is quiet and polite and asks RN how her day went. Pt states he thinks he will be going to [facility], and that he is not experiencing any MH symptoms at this point. .Pt is medication compliant. Pt also requests PRN trazodone which is given to him with good effect. discharge: Patient in need of crisis interruption and stabilization with medication management and monitoring in a safe and therapeutic environment until stable.
[2021-08-30 08:00] VITALS: BP 105/43
[2021-08-30] MEDS: divalproex 250mg tablet, delayed-release PO SCH ×2 (08:10→20:18)
[2021-08-30] MEDS: haloperidol 5mg tablet PO SCH ×2 (08:10→20:18)
--- NOTE | 2021-08-30 17:45 | NUR ---
NURSING PROGRESS NOTE: Lazaro Legal Status: Voluntary Report received from RACHAEL Carlos with use of SBAR Why are they here: Pt presents with confusion and disorganized thinking, pt is unable to come up with a plan for nursing home or food. Assessment: What happened on this shift: Patient received sleeping in his bed at shift change. He joined for breakfast in the group room with peers. Patient endorsed that he is doing good this morning. Patient refused to engage in conversation with this technical report writer, responding to open ended questions only. He was receptive to scheduled medication. He spent the majority of this shift sleeping in his room. He responds minimally to direct questions or does not respond at all. Patient noted to be guarded and self-isolative. He denies SI/HI, AH or VH. Does not appear to be responding to internal stimuli. Patient declined to participate in group therapy this shift despite encouragement. He joined in the group room for snack and meal times but was otherwise isolative to his room. S/I, H/I: Denies A/VH: Denies. Does not appear to be responding to IS. Sleep: Pt slept 8 hours last night per NOC shift. Slept most of this shift. ADL's: Independent Group attendance: No Were Meds taken: Yes Any med S/E: None reported or observed. Mental Status Exam Appearance: Disheveled younger appearing male dressed in green unit scrubs. Eye contact: Fair Behavior: Cooperative, quiet, isolates to self. Speech: Clear, minimal, normal rate/rhythm. Mood: Flat, guarded Affect: Flat Thought process: Linear, does not engage or initiate conversation. Thought Content: Meeting needs. Cognition: A&O X3 Insight: Fair Judgment: Fair Interventions PRN's used: None Therapeutic interventions: Provided 1:1 assessment, attempted therapeutic communication, medication administration/education/monitoring, provided clear and simple communication, positive encouragement, and maintained Q 15min safety checks. Restraints/seclusion/emergency medication: N/A Justification of Continued Inpatient Treatment: Patient in need of crisis interruption and stabilization with medication management and monitoring in a safe and therapeutic environment until stable.
[2021-08-30 19:22] VITALS: BP 114/65
[2021-08-30 19:25] VITALS: BP 105/45
--- NOTE | 2021-08-30 19:27 | NUR ---
Disregard 1921 VS; 1924 VS are correct.
[2021-08-30] MEDS: traZODone 50mg tablet PO PRN (20:19)
--- NOTE | 2021-08-31 04:02 | NUR ---
NURSING PROGRESS NOTE Legal Status: VOL Patient on voluntary status Why are they here: Pt presents with confusion and disorganized thinking, pt is unable to come up with a plan for snf or food. Pt has history of schizoaffective disorder. What Happened This Shift: Patient wandering the unit at the beginning of shift. Pleasant and cooperative with care; compliant with medication. PRN Trazodone provided. Patient denies SI, HI, A/VH; no apparent delusions expressed. Patient shaved and showered. He participated in HS snack prior to bed; observed sleeping and does not appear to having difficulty. discharge: Patient in need of crisis interruption and stabilization with medication management and monitoring in a safe and therapeutic environment until stable.
[2021-08-31] MEDS: divalproex 250mg tablet, delayed-release PO SCH ×2 (07:56→20:10)
[2021-08-31] MEDS: haloperidol 5mg tablet PO SCH ×2 (07:56→20:10)
[2021-08-31 08:23] VITALS: BP 98/45
--- NOTE | 2021-08-31 17:22 | NUR ---
NURSING PROGRESS NOTE: Lazaro Legal Status: Voluntary Report received from RACHAEL Carlos with use of SBAR Why are they here: Pt presents with confusion and disorganized thinking, pt is unable to come up with a plan for senior living or food. Assessment: What happened on this shift: Patient observed sleeping in his room at change of shift with no s/s of distress. He joined in the group room for breakfast and was receptive to scheduled medication. Patient refused to engage in conversation for 1:1 assessment. He spent the majority of this shift isolating to his room, appearing to be guarded and avoidant. Patient denies SI/HI, AH or VH. Does not appear to be responding to internal stimuli. He joined in the group room for snack and meal times but was otherwise isolative to his room. S/I, H/I: Denies A/VH: Denies. Does not appear to be responding to IS. Sleep: Pt slept 7.25 hours last night per NOC shift. Slept most of this shift. ADL's: Independent Group attendance: No group provided Were Meds taken: Yes Any med S/E: None reported or observed. Mental Status Exam Appearance: Disheveled younger appearing male dressed in green unit scrubs. Eye contact: Fair Behavior: Quiet, avoidant, isolates to self. Speech: Clear, minimal, normal rate/rhythm. Mood: Flat, guarded Affect: Flat Thought process: Linear, does not engage or initiate conversation. Thought Content: Meeting needs. Cognition: A&O X3 Insight: Fair Judgment: Fair Interventions PRN's used: None Therapeutic interventions: Provided 1:1 assessment, attempted therapeutic communication, medication administration/education/monitoring, provided clear and simple communication, positive encouragement, and maintained Q 15min safety checks. Restraints/seclusion/emergency medication: N/A Justification of Continued Inpatient Treatment: Patient in need of crisis interruption and stabilization with medication management and monitoring in a safe and therapeutic environment until stable.
[2021-08-31] MEDS: hydrOXYzine 25 MG tablet PO PRN (18:14)
[2021-08-31 19:14] VITALS: BP 116/55
[2021-08-31] MEDS: traZODone 50mg tablet PO PRN (20:10)
--- NOTE | 2021-09-01 03:42 | NUR ---
NURSING PROGRESS NOTE Legal Status: VOL Patient on voluntary status Why are they here: Pt presents with confusion and disorganized thinking, pt is unable to come up with a plan for [facility] or food. Pt has history of schizoaffective disorder. What Happened This Shift: Patient active on the unit at the beginning of shift. Pleasant and cooperative with care; compliant with medication. PRN Trazodone provided. Patient denies SI, HI, A/VH; no apparent delusions expressed. Patient mostly self-isolative and participated in HS snack prior to bed; observed sleeping and does not appear to be having difficulty. discharge: Patient in need of crisis interruption and stabilization with medication management and monitoring in a safe and therapeutic environment until stable.
[2021-09-01 08:00] VITALS: BP 97/40
[2021-09-01] MEDS: haloperidol 5mg tablet PO SCH ×2 (08:04→20:27)
[2021-09-01] MEDS: divalproex 250mg tablet, delayed-release PO SCH ×2 (08:04→20:27)
[2021-09-01 09:30] VITALS: BP 109/58
--- NOTE | 2021-09-01 17:50 | NUR ---
NURSING PROGRESS NOTE: Lazaro Legal Status: Voluntary Report received from RACHAEL Olivera with use of SBAR Why are they here: Pt presents with confusion and disorganized thinking, pt is unable to come up with a plan for penitentiary or food. Assessment: What happened on this shift: Patient received sleeping in his bed at shift change. Patient awoke and was receptive to scheduled medication. He reported to this database report writer that he is doing fine today. He participated for breakfast in the group room with peers. He continues to present as self-isolative, noted avoiding staff and other peers on the unit. Patient denies SI/HI, AH or VH. Does not appear to be responding to internal stimuli. He was noted lying in bed under his blanket unwilling to make eye contact or engage in conversation during assessment. He continues to spend the majority of this shift isolating to his room, appearing guarded and avoidant. He joined in the group room for snack and meal times. S/I, H/I: Denies A/VH: Denies. Does not appear to be responding to IS. Sleep: Pt slept 9.25 hours last night per NOC shift. Slept most of this shift. ADL's: Independent Group attendance: No group provided Were Meds taken: Yes Any med S/E: None reported or observed. Mental Status Exam Appearance: Disheveled younger appearing male dressed in green unit scrubs. Eye contact: Fair Behavior: Quiet, avoidant, isolates to self. Speech: Clear, minimal, normal rate/rhythm. Mood: Flat, guarded Affect: Flat Thought process: Linear, does not engage in or initiate conversation. Thought Content: Meeting needs. Cognition: A&O X3 Insight: Fair Judgment: Fair Interventions PRN's used: None Therapeutic interventions: Provided 1:1 assessment, attempted therapeutic communication, medication administration/education/monitoring, provided clear and simple communication, positive encouragement, and maintained Q 15min safety checks. Restraints/seclusion/emergency medication: N/A Justification of Continued Inpatient Treatment: Patient in need of crisis interruption and stabilization with medication management and monitoring in a safe and therapeutic environment until stable.
[2021-09-01] MEDS: hydrOXYzine 25 MG tablet PO PRN (18:07)
[2021-09-01 19:48] VITALS: BP 102/44
[2021-09-01] MEDS: traZODone 50mg tablet PO PRN (20:28)
[2021-09-01 20:36] VITALS: BP 107/60
--- NOTE | 2021-09-02 02:55 | NUR ---
NURSING PROGRESS NOTE Legal Status: VOL Patient on voluntary status Why are they here: Pt presents with confusion and disorganized thinking, pt is unable to come up with a plan for senior living or food. Pt has history of schizoaffective disorder. What Happened This Shift: Patient laying in bed awake at the beginning of shift. Pleasant and cooperative with care; compliant with medication. PRN Trazodone provided. Patient denies SI, HI, A/VH; no apparent delusions expressed. Patient participated in HS snack and returned to bed; observed sleeping and does not appear to be having difficulty. Discharge: Patient in need of crisis interruption and stabilization with medication management and monitoring in a safe and therapeutic environment until stable.
--- NOTE | 2021-09-02 07:43 | NUR ---
CM-placement Clinician had consultation w/pt's STAR team [phone], per consultation, pt completed [place] screening for inpt drug rehab, and is waiting for an intake appointment. ALEX clinician will f/u with [facility] to facilitate pt's access to inpt rehab. Clinician was made aware of pt need admin days, relayed this to ALEX cole and requested that he contact [facility] Managed Care and notify managed care of this and ask that Managed coal bagger contact [facility] to provide Admin days auth. Sully Perkins LCSW Addendum: 09/02/21 at 0751 by Sully Perkins SS Amended: Links added.
[2021-09-02 08:00] VITALS: BP 111/36
[2021-09-02] MEDS: divalproex 250mg tablet, delayed-release PO SCH ×2 (08:12→20:07)
[2021-09-02] MEDS: haloperidol 5mg tablet PO SCH ×2 (08:12→20:07)
--- NOTE | 2021-09-02 13:13 | NUR ---
Discharge Planning Spoke to [place] office regarding discharge planning. Was informed that Lazaro had been kicked out of the [facility] and could go to the Wed meeting to request he be able to return. [facility] did not feel like he was appropriate. Called his STAR Team business case analyst, North (ph# [phone]), to discuss a discharge plan. North reported he will reach out to Probation to see if they can put Lazaro up in a hotel for a couple days. He will call sign writer hand back if he has a plan in place. Informed him that Lazaro need to discharge as his insurance is no longer paying. ALBERT Stephen
--- NOTE | 2021-09-02 14:20 | NUR ---
DISCHARGE PLANNING North (ph# [phone]), STAR Team, reported if Lazaro has an intake scheduled at [facility] or [facility] he can then get authorization to stay at a sober living until the intake. He requested screen writer assist him with calling to get an intake scheduled. Requested Praveena, Substance Use Navigator, assist Lazaro with this process. She reported he has to call [facility] again to get authorization as it is needed every 48 hours. She called [employer] and confirmed this. Praveena attempted to assist Lazaro with calling [place] and he would not cooperate. Called North, STAR Team, and requested he come help Lazaro with calling [facility] and getting an intake scheduled. North reported he can help Lazaro tomorrow and will meet with him at [facility] around 10:15 tomorrow. ALBERT Stephen
--- NOTE | 2021-09-02 17:52 | NUR ---
NURSING PROGRESS NOTE: Legal Status: Voluntary Report received from RACHAEL Patel with use of SBAR Why are they here: Pt presents with confusion and disorganized thinking, pt is unable to come up with a plan for halfway or food. Assessment: What happened on this shift: RN received pt. asleep in bed at start of shift change. Pt. awake for breakfast and took all medications. 1:1 done at bedside, pt. denies all psych symptoms. Pt. gives minimal info during interview, when asked why he is here, pt. states, I was brought here for my mental health. Pt. isolates to his room most of the day, coming out only for meals and snacks. Pt. approaches RN and asks for candy, RN informed pt. that he has to go to group to get candy, pt. states, I just want a piece of candy. S/I, H/I: Denies A/VH: Denies Sleep: Pt slept 8.25 hours last night per NOC shift and napped intermittently during the day. ADL's: Independent Group attendance: No Were Meds taken: Yes Any med S/E: None reported or observed. Mental Status Exam Appearance: Disheveled younger appearing male dressed in green unit scrubs. Eye contact: Fair Behavior: Quiet, avoidant, isolates to self. Speech: Clear, minimal, normal rate/rhythm. Mood: Flat, guarded Affect: Flat Thought process: Linear, poverty of thought Thought Content: Circumstantial Cognition: A&O to self and place. Insight: Poor Judgment: Poor Interventions PRN's used: None Therapeutic interventions: Provided 1:1 assessment, attempted therapeutic communication, medication administration/education/monitoring, provided clear and simple communication, positive encouragement, and maintained Q 15min safety checks. Restraints/seclusion/emergency medication: N/A Justification of Continued Inpatient Treatment: Patient in need of crisis interruption and stabilization with medication management and monitoring in a safe and therapeutic environment until stable
[2021-09-02 19:53] VITALS: BP 105/54
[2021-09-02] MEDS: traZODone 50mg tablet PO PRN (20:07)
--- NOTE | 2021-09-03 04:20 | NUR ---
NURSING PROGRESS NOTE Legal Status: VOL Patient on voluntary status Why are they here: Pt presents with confusion and disorganized thinking, pt is unable to come up with a plan for nursing home or food. Pt has history of schizoaffective disorder. What Happened This Shift: Patient laying in bed at the beginning of shift. Pleasant and cooperative with care; compliant with medication. PRN Trazodone provided. Patient denies SI, HI, A/VH; no apparent delusions expressed. He remains guarded and answers questions as minimal as possible. Patient participated in HS snack and observed wandering the unit briefly before bed; observed sleeping and does not appear to be having difficulty. Discharge: Patient in need of crisis interruption and stabilization with medication management and monitoring in a safe and therapeutic environment until stable.
--- NOTE | 2021-09-03 07:31 | NUR ---
Reassessment: Pt currently on Regular diet w/ 100% intake of meals and some snacks per documentation. [facility] 09/01 w/ PRN bowel care available. No nutrition intervention implemented at this time, will continue to monitor. Recs: 1. Continue Regular diet as tolerated 2. Bowel care PRN 3. Weekly wts Addendum: 09/03/21 at [address] Amended: Links added.
[2021-09-03] MEDS: haloperidol 5mg tablet PO SCH ×2 (08:24→20:03)
[2021-09-03] MEDS: divalproex 250mg tablet, delayed-release PO SCH ×2 (08:24→20:03)
--- NOTE | 2021-09-03 11:47 | NUR ---
North from [facility] met with Lazaro and assisted him with calling [facility] for drug tx approval. They left a message with [facility] to request an intake date. North reported he is going to talk to [facility] to try to coordinate Lazaro going there upon discharge until he can go to rehab. North will keep conventional mortgage underwriter updated if he makes any progress on this plan. ALBERT Stephen
--- NOTE | 2021-09-03 13:27 | NUR ---
DCP Presenting Issues: Pt's ready for d/c. Interventions: Clinician had t/c w/pt's STAR team SCOOBY-North and finalized dcp & coordinated transportation for pt to go to the [facility] upon d/c where he will wait for a SLE bed to open up. Per t/c North will pick pt up tomorrow at 10:30 AM. Attending physician & care team notified. Plan: Pt to d/c tomorrow at 10:30 AM with STAR deep [place] to continuous pickling line pickler. SKIP GalarzaW Addendum: 09/03/21 at 1331 by Sully Perkins SS Amended: Links added.
--- NOTE | 2021-09-03 17:44 | NUR ---
NURSING PROGRESS NOTE: Legal Status: Voluntary Report received from RACHAEL Garcia with use of SBAR Why are they here: Pt presents with confusion and disorganized thinking, pt is unable to come up with a plan for intermediate or food. Assessment: What happened on this shift: RN received pt. asleep in bed at start of shift change. Pt. awake for breakfast and took all medications. 1:1 done at bedside, pt. denies all psych symptoms. Pt. gives minimal info during interview. Pt. states, Im just reading my Bible. Pt. isolated to his room most of the day. S/I, H/I: Denies A/VH: Denies Sleep: Pt slept 7.75 hours last night per NOC shift and napped intermittently during the day. ADL's: Independent Group attendance: No Were Meds taken: Yes Any med S/E: None reported or observed. Mental Status Exam Appearance: Disheveled younger appearing male dressed in green unit scrubs. Eye contact: Fair Behavior: Quiet, avoidant, socially withdrawn. Speech: WNL Mood: Flat, guarded Affect: Flat Thought process: Linear, poverty of thought Thought Content: Circumstantial Cognition: A&O to self and place. Insight: Poor Judgment: Poor Interventions PRN's used: None Therapeutic interventions: Provided 1:1 assessment, attempted therapeutic communication, medication administration/education/monitoring, provided clear and simple communication, positive encouragement, and maintained Q 15min safety checks. Restraints/seclusion/emergency medication: N/A Justification of Continued Inpatient Treatment: Patient in need of crisis interruption and stabilization with medication management and monitoring in a safe and therapeutic environment until stable
[2021-09-03 19:22] VITALS: BP 105/55
[2021-09-03] MEDS: traZODone 50mg tablet PO PRN (20:02)
--- NOTE | 2021-09-04 04:27 | NUR ---
NURSING PROGRESS NOTE Legal Status: VOL Patient on voluntary status Why are they here: Pt presents with confusion and disorganized thinking, pt is unable to come up with a plan for jail or food. Pt has history of schizoaffective disorder. What Happened This Shift: Patient observed pacing the halls and talking on the phone at the beginning of shift. Pleasant and cooperative with care; compliant with medication. PRN Trazodone provided. Patient denies SI, HI, A/VH; no apparent delusions expressed. Patient continues to report not having a safe place to discharge to. He participated in HS snack prior to bed; observed sleeping and does not appear to be having difficulty. Discharge: Patient in need of crisis interruption and stabilization with medication management and monitoring in a safe and therapeutic environment until stable.
[2021-09-04] MEDS ORDERED: HALO5TAB PO (07:03)
[2021-09-04] MEDS ORDERED: TRAZ-251 PO (07:03)
[2021-09-04] MEDS ORDERED: DIVA250T4 PO (07:03)
[2021-09-04] MEDS ORDERED: HYDR-3686 PO (07:03)
[2021-09-04 07:49] LABS: BASOPHILS % (AUTO) 0.9 % (0-1); EOSINOPHILS # (AUTO) 0.2 X10'3 (0-0.9); EOSINOPHILS % (AUTO) 3.7 % (0-6); HEMATOCRIT 38.1 % (42.0-52.0); HEMOGLOBIN 12.9 g/dl (14.0-17.9); LYMPHOCYTES # (AUTO) 2.2 X10'3 (1.1-4.8); LYMPHOCYTES % (AUTO) 43.4 % (21-51); MEAN CORPUSCULAR HEMOGLOBIN 29.1 PG (27.0-31.0); MEAN CORPUSCULAR HGB CONC 33.9 g/dL (33.0-36.5); MEAN CORPUSCULAR VOLUME 86.1 FL (78-98); MEAN PLATELET VOLUME 9.7 FL (7.4-10.4); MONOCYTES # (AUTO) 0.4 X10'3 (0-0.9); MONOCYTES % (AUTO) 7.9 % (2-12); NEUTROPHILS # (AUTO) 2.2 X10'3 (1.8-7.7); NEUTROPHILS % (AUTO) 44.1 % (42-75); PLATELET COUNT 146 X10'3 (140-440); RED BLOOD COUNT 4.43 X10'6 (4.70-6.10); RED CELL DISTRIBUTION WIDTH 15.5 % (11.5-14.5)
[2021-09-04 08:13] LABS: ALANINE AMINOTRANSFERASE 7 U/L (12-78); ALBUMIN 2.9 G/DL (3.4-5.0); ALBUMIN/GLOBULIN RATIO 0.8 (1.1-1.5); ALKALINE PHOSPHATASE 50 IU/L (46-116); ANION GAP 6 (8-16); ASPARTATE AMINO TRANSFERASE 9 U/L (10-37); BILIRUBIN,TOTAL 0.3 MG/DL (0.1-1.0); BLOOD UREA NITROGEN 15 MG/DL (7-18); BUN/CREATININE RATIO 23.8 (5.4-32.0); CALCIUM 7.9 MG/DL (8.5-10.1); CHLORIDE 106 MMOL/L (99-107); CREATININE 0.63 MG/DL (0.60-1.10); GLUCOSE 88 MG/DL (70-104); POTASSIUM 4.2 MMOL/L (3.5-5.1); SODIUM 141 MMOL/L (135-145); TOTAL CARBON DIOXIDE 28.8 MMOL/L (24-32); TOTAL PROTEIN 6.4 G/DL (6.4-8.2); eGFR > 90 ML/MIN
[2021-09-04] MEDS: haloperidol 5mg tablet PO SCH (08:17)
[2021-09-04] MEDS: divalproex 250mg tablet, delayed-release PO SCH (08:17)
[2021-09-04 08:25] LABS: VALPROATE 87 UG/ML (50-100)
--- NOTE | 2021-09-04 10:40 | NUR ---
DISCHARGE NOTE: Pt. discharged to [facility], pt. driven in car by [facility] wheelchair driver. RN went over all discharge paperwork with pt. and pt. verbalized understanding and signed all paperwork including f/u plan, medications, and emergency phone numbers including 911. Pt. denies SI/HI, A/V hallucinations. Pt. is A&Ox4 and in no apparent distress. Pt. discharged with all belongings and valuables.
== END 2021-09-04 10:39 | disposition home or self-care (01) | DRG 750 ==
LOC: ER 15:54 → ED HOLD 08-23 16:00 → ADULT MH 08-23 16:48
PROVIDERS: ADMIT Psychiatry & Neurology Psychiatry; ATTEND Psychiatry & Neurology Psychiatry
DX: F25.0 Schizoaffective disorder, bipolar type (principal); Z59.00 Homelessness unspecified; F10.20 Alcohol dependence, uncomplicated; F17.210 Nicotine dependence, cigarettes, uncomplicated; F15.10 Other stimulant abuse, uncomplicated; J45.909 Unspecified asthma, uncomplicated; F12.90 Cannabis use, unspecified, uncomplicated; Z82.3 Family history of stroke; Z65.3 Problems related to other legal circumstances; Z79.899 Other long term (current) drug therapy; Z83.3 Family history of diabetes mellitus
CPT/HCPCS: 36415; 80053; 80061; 80164; 80305; 80320; 81001; 83036; 84443; 85025; 87081; 99285; J1200; J1630; J2060; Q0177

== ENCOUNTER 2021-09-15 15:10 | Emergency (ER) | payer MEDICAID ==
[~2021-09-15] VITALS: Ht 180.3 cm; Wt 93.0 kg
[~2021-09-15 15:10] MED LIST changes: -AZIT500T9 PO; -DIVA250T15 PO; +DIVA250T4 PO; +HYDR-3686 PO; -NO HOME MEDS; +TRAZ-251 PO
[2021-09-15 15:13] VITALS: BP 117/67
== END 2021-09-15 17:22 | disposition left against medical advice (07) ==
LOC: ER 15:10
DX: R11.2 Nausea with vomiting, unspecified (principal); Z53.21 Procedure and treatment not carried out due to patient leaving prior to being seen by health care provider

== ENCOUNTER 2021-09-17 11:26 | Emergency (ER) | payer MEDICAID ==
[~2021-09-17] VITALS: Ht 177.8 cm; Wt 94.5 kg
[2021-09-17] MEDS ORDERED: LORazepam 2 mg/ml vial IM ONE (12:15)
[2021-09-17] MEDS ORDERED: haloperidol lactate 5mg/ml inj IM ONE (12:15)
[2021-09-17] MEDS ORDERED: diphenhydrAMINE 50 mg/ml inj IM ONE (12:15)
[2021-09-17 12:19] LABS: BASOPHILS # (AUTO) 0.1 X10'3 (0-0.2); BASOPHILS % (AUTO) 1.3 % (0-1); EOSINOPHILS # (AUTO) 0.3 X10'3 (0-0.9); EOSINOPHILS % (AUTO) 3.4 % (0-6); HEMATOCRIT 36.9 % (42.0-52.0); HEMOGLOBIN 12.3 g/dl (14.0-17.9); LYMPHOCYTES # (AUTO) 2.6 X10'3 (1.1-4.8); LYMPHOCYTES % (AUTO) 33.6 % (21-51); MEAN CORPUSCULAR HGB CONC 33.4 g/dL (33.0-36.5); MEAN PLATELET VOLUME 9.7 FL (7.4-10.4); MONOCYTES # (AUTO) 0.8 X10'3 (0-0.9); MONOCYTES % (AUTO) 10.2 % (2-12); NEUTROPHILS % (AUTO) 51.5 % (42-75); PLATELET COUNT 217 X10'3 (140-440); RED BLOOD COUNT 4.24 X10'6 (4.70-6.10); WHITE BLOOD COUNT 7.8 X10'3 (4.5-11.0)
[2021-09-17 12:35] LABS: ALANINE AMINOTRANSFERASE 7 U/L (12-78); ALBUMIN 3.7 G/DL (3.4-5.0); ALKALINE PHOSPHATASE 55 IU/L (46-116); ANION GAP 6 (8-16); ASPARTATE AMINO TRANSFERASE 15 U/L (10-37); BILIRUBIN,TOTAL 0.4 MG/DL (0.1-1.0); BLOOD UREA NITROGEN 13 MG/DL (7-18); BUN/CREATININE RATIO 17.8 (5.4-32.0); CALCIUM 8.6 MG/DL (8.5-10.1); CHLORIDE 107 MMOL/L (99-107); CREATININE 0.73 MG/DL (0.60-1.10); ETHANOL < 0.010 GM/DL (0.0-0.010); GLUCOSE 93 MG/DL (70-104); POTASSIUM 3.8 MMOL/L (3.5-5.1); SODIUM 141 MMOL/L (135-145); TOTAL CARBON DIOXIDE 27.7 MMOL/L (24-32); TOTAL PROTEIN 7.4 G/DL (6.4-8.2); eGFR > 90 ML/MIN
[2021-09-17 14:12] LABS: CLARITY,URINE CLOUDY (Clear); COLOR,URINE YELLOW (Yellow); GLUCOSE, URINE NEGATIVE (Neg); PROTEIN,URINE NEGATIVE (Neg)
[2021-09-17 14:13] LABS: KETONES,URINE NEGATIVE (Neg); LEUKOCYTE ESTERASE ,URINE NEGATIVE (Neg); NITRITES, URINE NEGATIVE (Neg); OCCULT BLOOD,URINE NEGATIVE (Neg); UROBILINOGEN,URINE 0.2 E.U/dL (0.2-1.0)
[2021-09-17 14:18] LABS: UA COLLECTION TYPE CLN CATCH MIDSTREAM
[2021-09-17 14:19] LABS: URINE AMPHETAMINE SCREEN NEGATIVE (Neg); URINE BARBITUATE SCREEN NEGATIVE (Neg); URINE BENZODIAZEPINES SCREEN NEGATIVE (Neg); URINE CANNABINOID SCREEN POSITIVE (Neg); URINE COCAINE SCREEN NEGATIVE (Neg); URINE METHADONE SCREEN NEGATIVE (Neg); URINE OPIATE SCREEN NEGATIVE (Neg); URINE PHENCYCLIDINE SCREEN NEGATIVE (Neg)
[2021-09-17 14:24] LABS: CAL OXALATE CRYSTALS FEW /HPF (NEGATIVE)
[2021-09-17 14:25] LABS: BACTERIA,URINE FEW /HPF (Neg); MUCUS STRANDS MANY /LPF (Neg); RBC,URINE 0-2 /HPF (0-2); SQUAMOUS EPITHELIAL CELL,UR FEW /LPF (FEW); WBC,URINE 0-4 /HPF (0-4)
[2021-09-17 15:31] VITALS: BP 126/79
--- NOTE | 2021-09-17 16:51 | NUR ---
Received pt from main ER to overflow. Pt resistive to interaction.
--- NOTE | 2021-09-17 17:00 | NUR ---
Pt currently sleeping with no complaints.
[2021-09-17] MEDS ORDERED: HALO5TAB PO (18:53)
[2021-09-17] MEDS ORDERED: HYDR-3686 PO (18:53)
[2021-09-17] MEDS ORDERED: TRAZ-256 PO (18:53)
--- NOTE | 2021-09-17 19:48 | NUR ---
One to one with the patient to assess for severity of thought disorder. He has been talkative and friendly with staff. He appears dirty and disheveled. He is disorganized and has no plan that is realistic for food halfway or clothing. Whe asked why he was here he replied, "They brought me here because mmy senior care goal was to get my foot fixed and my work boots to get back to work. Everytime I go down town there's so much work there's no dishes to be washed" He could not state when he last took his psychiatric medications. He had difficulty answering questions and he seemed to have very poor focus but he describes his focus and "great" He reports voices of "moaning, knocking, and reving" He denies suicidal thoughts or thoughts to harm others. He is willing to be restarted on his psychiatric medications.
[2021-09-17] MEDS ORDERED: traZODone 50mg tablet PO PRN (19:55)
[2021-09-17] MEDS ORDERED: hydrOXYzine 25 MG tablet PO PRN (19:55)
[2021-09-17] MEDS: haloperidol 5mg tablet PO SCH (20:09)
--- NOTE | 2021-09-17 20:37 | NUR ---
The patient reporting pain in right lower leg. Some edema in foot and leg. Positive pedal pulse. Dr. Paredes made aware.
--- NOTE | 2021-09-17 20:54 | NUR ---
The patient appears to be sleeping
[2021-09-17 23:01] LABS: D-DIMER < 0.19 MG/L FEU (0-0.50)
--- NOTE | 2021-09-17 23:36 | NUR ---
Dr. Paredes was at the bedside and examined the patient. D-dimer was drawn and WNL. The patient is currently sleeping
--- NOTE | 2021-09-18 01:56 | NUR ---
NURSE TO NURSE WITH ANIKET CLEMENTE REDDING
--- NOTE | 2021-09-18 01:56 | NUR ---
The patient currently appears to be sleeping
--- NOTE | 2021-09-18 03:29 | NUR ---
The patient appears to be sleeping
--- NOTE | 2021-09-18 04:22 | NUR ---
The patient is awake, disorganized and watching staff
--- NOTE | 2021-09-18 04:29 | NUR ---
The patient is confrontatioal regarding any request made of him. He was given a sandwhich because he requested a snack but took exception about being given the sandwhich.
[2021-09-18] MEDS ORDERED: OLANZapine 2.5MG tablet PO ONE (04:35)
[2021-09-18] MEDS ORDERED: LORazepam 2 mg/ml vial ONE (04:46)
[2021-09-18] MEDS ORDERED: haloperidol lactate 5mg/ml inj ONE (04:47)
[2021-09-18] MEDS ORDERED: diphenhydrAMINE 50 mg/ml inj ONE (04:47)
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
--- NOTE | 2021-09-18 05:05 | NUR ---
The patient paranoid of staff and cursing at the bedside.
[2021-09-18] MEDS: haloperidol 5mg tablet PO SCH (08:00)
--- NOTE | 2021-09-18 09:16 | NUR ---
Patient is sleepy but arousable. complains of feeling fatigued r/t IM medications earlier this morning. AM Glen[facility] held.
--- NOTE | 2021-09-18 12:10 | NUR ---
Discharged to [facility]
== END 2021-09-18 11:17 ==
LOC: ER 11:26
DX: F79 Unspecified intellectual disabilities (principal); Z20.822 Contact with and (suspected) exposure to COVID-19; F20.9 Schizophrenia, unspecified; R45.1 Restlessness and agitation; J45.909 Unspecified asthma, uncomplicated; F31.9 Bipolar disorder, unspecified; F12.90 Cannabis use, unspecified, uncomplicated; F15.90 Other stimulant use, unspecified, uncomplicated; Z87.440 Personal history of urinary (tract) infections; Z72.89 Other problems related to lifestyle; Z60.2 Problems related to living alone; Z59.00 Homelessness unspecified; Z79.899 Other long term (current) drug therapy
CPT/HCPCS: 36415; 80053; 80305; 80320; 81001; 85025; 85379; 87635; 96372; 99285; C9803; J1200; J1630; J2060; Q0177